=== PATIENT | male | born 1970 | race Caucasian/White ===

== ENCOUNTER 2017-10-23 14:29 | Inpatient (IN) | payer OTHER ==
[2017-10-23 14:50] VITALS: BMI 30.2
--- NOTE | 2017-10-23 18:27 | HP ---
CIWA Score - CIWA Score Nausea/Vomitin-Int. Nausea w/Dry Heave Muscle Tremors: 3 Anxiety: 3 Agitation: 3 Paroxysmal Sweats: 4-Forehead w/Sweat Beads Orientation: 0-Oriented Tacttile Disturbances: 0-None Auditory Disturbances: 0-None Visual Disturbances: 0-None Headache: 3-Moderate CIWA-Ar Total Score: 20 Admission ROS BHS - HPI Chief Complaint: alcohol withdrawal symptoms Allergies/Adverse Reactions: Allergies Allergy/AdvReac Type Severity Reaction Status Date / Time No Known Allergies Allergy Verified 10/23/17 16:53 History of Present Illness: 47 yo male with hx alcohol dependence is here seeking detox. Last detox six months ago in [place]. Reports was at [facility] yesterday for alcohol intoxication. PMHX: DM II, GERD, depression, bipolar d/o. Denies suicidal / homicidal ideation. Reports withdrawal related seizures last episode three years ago. Longest period of sobriety three years. Exam Limitations: No Limitations - Ebola screening Have you been sick,other than usual withdrawal symptoms: No - Review of Systems Constitutional: Diaphoresis, Changes in sleep EENT: reports: No Symptoms Reported Respiratory: reports: No Symptoms reported Cardiac: reports: No Symptoms Reported GI: reports: Diarrhea, Nausea, Vomiting, Indigestion : reports: No Symptoms Reported Musculoskeletal: reports: No Symptoms Reported Integumentary: reports: Other (excoriation for forearms trying to remove tape from hospital) Neuro: reports: See HPI, Headache, Tremors, Dizziness Endocrine: reports: Increased Thirst Hematology: reports: No Symptoms Reported Psychiatric: reports: Orientated x3, Anxious Other Systems: Reviewed and Negative Patient History - Patient Medical History Hx Anemia: No Hx Asthma: No Hx Chronic Obstructive Pulmonary Disease (COPD): No Hx Cancer: No Hx Cardiac Disorders: No Hx Congestive Heart Failure: No Hx Hypertension: No Hx Hypercholesterolemia: No Hx Pacemaker: No HX Cerebrovascular Accident: No Hx Seizures: Yes (2015) Hx Dementia: No Hx Diabetes: Yes (DM TYPE2) Hx Gastrointestinal Disorders: Yes (GERD ) Hx Liver Disease: No Hx Genitourinary Disorders: No Hx Sexually Transmitted Disorders: No Hx Renal Disease (ESRD): No Hx Thyroid Disease: No Hx Human Immunodeficiency Virus (HIV): No (last tested six months ago ) Hx Hepatitis C: No Hx Depression: No Hx Suicide Attempt: No Hx Bipolar Disorder: Yes Hx Schizophrenia: No - Patient Surgical History Past Surgical History: No - PPD History Previous Implant?: No Documented Results: Negative w/o proof Implanted On Prior [facility] Admission?: No PPD to be Administered?: Yes - Smoking Cessation Smoking history: Never smoked Hx Chewing Tobacco Use: No Initiated information on smoking cessation: No - Substance & Tx. History Hx Alcohol Use: Yes Hx Substance Use: Yes Substance Use Type: Alcohol - Substances Abused Alcohol Route: Oral Frequency: Daily Amount used: 2L VODKA Age of first use: 16 Date of Last Use: 10/23/17 Family Disease History - Family Disease History Family Disease History: Diabetes: Mother (, manic depressive d/o), CA: Mother Admission Physical Exam S - Vital Signs Vital Signs: Vital Signs - 24 hr 10/23/17 14:46 Temperature 98.5 F Pulse Rate 92 H Respiratory 18 Rate Blood Pressure 129/78 - Physical General Appearance: Yes: Disheveled, Moderate Distress, Obese, Tremorous, Sweating, Anxious HEENTM: Yes: EOMI, Hearing grossly Normal, Normal ENT Inspection, Normocephalic , Normal Voice, YOJANA, Pharynx Normal, Tm's normal Respiratory: Yes: Chest Non-Tender, Lungs Clear, Normal Breath Sounds, No Respiratory Distress, No Accessory Muscle Use Neck: Yes: No masses,lesions,Nodules, Trachea in good position Breast: Yes: Breast Exam Deferred Cardiology: Yes: Regular Rhythm, Regular Rate Abdominal: Yes: Normal Bowel Sounds, Non Tender, Soft, Protuberent Genitourinary: Yes: Within Normal Limits Back: Yes: Normal Inspection Musculoskeletal: Yes: full range of Motion, Gait Steady, Pelvis Stable Extremities: Yes: Normal Capillary Refill, Normal Inspection, Normal Range of Motion, Non-Tender Neurological: Yes: commander internal affairs II-XII NML intact, Fully Oriented, Alert, Motor Strength 5/5, Depressed Affect Integumentary: Yes: Normal Color, Warm, Diaphoresis, Other (excoriation for forearms) Lymphatic: Yes: Within Normal Limits - Diagnostic (1) Alcohol dependence with withdrawal Current Visit: Yes Status: Acute Qualifiers: Complication of substance-induced condition: uncomplicated Qualified Code(s ): F10.230 - Alcohol dependence with withdrawal, uncomplicated (2) Diabetes mellitus type 2 in obese Current Visit: Yes Status: Chronic (3) GERD (gastroesophageal reflux disease) Current Visit: Yes Status: Chronic Qualifiers: Esophagitis presence: without esophagitis Qualified Code(s): K21.9 - Gastro -esophageal reflux disease without esophagitis Cleared for Admission [facility] - Detox or Rehab [facility] Level of Care: Medically Managed Detox Regimen/Protocol: Librium [facility] Breath Alcohol Content Breath Alcohol Content: 0.085 Urine Drug Screen - Results Drug Screen Negative: No Urine Drug Screen Results: BZO-Benzodiazepines
[2017-10-23] MEDS ORDERED: IBUPROFEN 400 MG TABLET (FP) PO PRN (18:30)
[2017-10-23] MEDS ORDERED: LOPERAMIDE HCL 2 MG CAPSULE PO PRN (18:30)
[2017-10-23] MEDS ORDERED: ACETAMINOPHEN 325 MG TABLET (FP) PO PRN (18:30)
[2017-10-23] MEDS ORDERED: MENTHOL/PHENOL 1 EACH UD MM PRN (18:30)
[2017-10-23] MEDS ORDERED: MAGNESIUM HYDROX 2400MG/30ML ORAL SUSPENSION 30 ML CUP PO PRN (18:30)
[2017-10-23] MEDS ORDERED: guaiFENesin/D-METHORPHAN HB 10 ML UNIT-DOSE CUPS PO PRN (18:30)
[2017-10-23] MEDS ORDERED: P-EPHED 60MG/TRIPROLIDI 2.5MG TABLET PO PRN (18:30)
[2017-10-23] MEDS ORDERED: MAG HYDROX/AL HYDROX/SIMETH 30 ML UNIT-DOSE CUP PO PRN (18:30)
[2017-10-23] MEDS ORDERED: MAGNESIUM CITRATE 300 ML BOTTLE PO PRN (18:30)
[2017-10-23] MEDS: BACITRACIN 0.9 GM PACKET TP SCH (19:27)
[2017-10-23] MEDS: chlordiazePOXIDE HCL 25 MG CAPSULE PO PRN (19:28)
[2017-10-23] MEDS ORDERED: MELATONIN 5 MG TABLETS PO PRN (22:00)
[2017-10-23] MEDS: THIAMINE HCL 100 MG TABLET (FP) PO SCH (22:07)
[2017-10-23] MEDS: chlordiazePOXIDE HCL 25 MG CAPSULE PO SCH (22:07)
[2017-10-23 23:18] LABS: URINE APPEARANCE CLEAR; URINE BILIRUBIN NEGATIVE (<2.0 mg/dL); URINE COLOR LTYELLOW; URINE GLUCOSE (UA) 1+ (NEGATIVE); URINE KETONE NEGATIVE (NEGATIVE); URINE LEUK ESTERASE NEGATIVE (NEGATIVE); URINE NITRITE NEGATIVE (NEGATIVE); URINE PROTEIN NEGATIVE (NEGATIVE); URINE UROBILINOGEN NEGATIVE mg/dL (0.2-1.0)
[2017-10-24] MEDS: chlordiazePOXIDE HCL 25 MG CAPSULE PO PRN (03:05)
[2017-10-24] MEDS: chlordiazePOXIDE HCL 25 MG CAPSULE PO SCH (05:24)
[2017-10-24] MEDS: metFORMIN HCL 500 MG TABLET (FP) PO SCH ×2 (07:46→17:20)
[2017-10-24] MEDS: ONDANSETRON *ODT* 4 MG TABLET SL PRN (09:46)
[2017-10-24 10:27] LABS: HEMATOCRIT 42.1 % (35.4-49); HEMOGLOBIN 14.4 GM/dL (11.7-16.9); MCH 30.2 pg (25.7-33.7); MCHC 34.1 g/dl (32.0-35.9); MEAN CELL VOLUME 88.4 fl (80-96); MEAN PLT VOLUME 8.7 fl (7.5-11.1); PLATELET COUNT 168 K/MM3 (134-434); RBC 4.76 M/mm3 (4.00-5.60); RDW 14.7 % (11.9-15.9); WHITE BLOOD COUNT 5.4 K/mm3 (4.0-10.0)
[2017-10-24 10:32] LABS: CHLORIDE 103 mmol/L (98-107); POTASSIUM 4.1 mmol/L (3.5-5.1); SODIUM 139 mmol/L (136-145)
[2017-10-24] MEDS: PRENATAL VITAMINS W/ FOLIC ACID TABLET (FP) PO SCH (10:34)
[2017-10-24] MEDS: diazePAM 5 MG TABLET PO PRN ×2 (10:34→17:24)
[2017-10-24] MEDS: PANTOPRAZOLE 20 MG TABLET (FP) PO SCH (10:34)
[2017-10-24] MEDS: BACITRACIN 0.9 GM PACKET TP SCH (10:34)
[2017-10-24 10:37] LABS: ALBUMIN 3.7 g/dl (3.4-5.0); ALK PHOS 108 U/L (45-117); ANION GAP 11 MMOL/L (8-16); BILIRUBIN,TOTAL 0.9 mg/dL (0.2-1.0); BLOOD UREA NITROGEN 13 mg/dL (7-18); CALCIUM 8.9 mg/dL (8.5-10.1); CO2 25 mmol/L (21-32); CREATININE 0.8 mg/dL (0.7-1.3); GLUCOSE,RANDOM 182 mg/dL (74-106); SGOT/AST 27 U/L (15-37); SGPT/ALT 58 U/L (12-78); TOT PROT 6.7 g/dl (6.4-8.2)
--- NOTE | 2017-10-24 12:57 | PN ---
S CIWA - CIWA Score Nausea/Vomitin-Int. Nausea w/Dry Heave Muscle Tremors: 4-Moderate,w/Arms Extend Anxiety: 4-Mod. Anxious/Guarded Agitation: 4-Moderately Restless Paroxysmal Sweats: 1-Minimal Palms Moist Orientation: 0-Oriented Tacttile Disturbances: 0-None Auditory Disturbances: 0-None Visual Disturbances: 0-None Headache: 0-None Present CIWA-Ar Total Score: 17 BHS Progress Note (SOAP) Subjective: ANXIETY,NAUSEA,TREMORS. PT REQUESTS TO CHANGE LIBRIUM DUE TO STOMACH UPSET. Objective: 10/24/17 12:56 Vital Signs 10/24/17 10/24/17 06:18 11:18 Temperature 97.3 F L 98.2 F Pulse Rate 69 71 Respiratory 18 18 Rate Blood Pressure 113/71 107/68 Laboratory Tests 10/23/17 10/23/17 10/24/17 19:27 21:41 05:24 WBC RBC Hgb Hct MCV MCH MCHC RDW Plt Count MPV Sodium Potassium Chloride Carbon Dioxide Anion Gap BUN Creatinine Creat Clearance w eGFR POC Glucometer 202 165 Random Glucose Calcium Total Bilirubin AST ALT Alkaline Phosphatase Total Protein Albumin Urine Color Ltyellow Urine Appearance Clear Urine pH 5.0 Ur Specific [place] 1.010 Urine Protein Negative Urine Glucose (UA) 1+ H Urine Ketones Negative Urine Blood Negative Urine Nitrite Negative Urine Bilirubin Negative Urine Urobilinogen Negative Ur Leukocyte Esterase Negative RPR Titer 10/24/17 10/24/17 10/24/17 07:00 07:00 07:00 WBC 5.4 RBC 4.76 Hgb 14.4 Hct 42.1 MCV 88.4 MCH 30.2 MCHC 34.1 RDW 14.7 Plt Count 168 MPV 8.7 Sodium 139 Potassium 4.1 Chloride 103 Carbon Dioxide 25 Anion Gap 11 BUN 13 Creatinine 0.8 Creat Clearance w eGFR > 60 POC Glucometer Random Glucose 182 H Calcium 8.9 Total Bilirubin 0.9 AST 27 ALT 58 Alkaline Phosphatase 108 Total Protein 6.7 Albumin 3.7 Urine Color Urine Appearance Urine pH Ur Specific [place] Urine Protein Urine Glucose (UA) Urine Ketones Urine Blood Urine Nitrite Urine Bilirubin Urine Urobilinogen Ur Leukocyte Esterase RPR Titer Nonreactive Assessment: 10/24/17 12:56 WITHDRAWAL SX Plan: CONTINUE DETOX ZOFRAN SL PRN D/C LIBRIUM PROTOCOL START VALIUM TAPER.
--- NOTE | 2017-10-24 13:51 | CONSULT ---
[facility] Psychiatric Consult - Data Date of interview: 10/24/17 Admission source: [facility] Identifying data: Patient is a 47 year old male, without kids, homeless, and unemployed. This is patient's first admission to detox at [facility]. Pt. admitted to for alcohol dependence. Substance Abuse History: - Smoking Cessation. Smoking history: Never smoked. Hx Chewing Tobacco Use: No. Initiated information on smoking cessation: No. - Substance & Tx. History. Hx Alcohol Use: Yes. Hx Substance Use: Yes. Substance Use Type: Alcohol. - Substances Abused. Alcohol. Route: Oral. Frequency: Daily. Amount used: 2L VODKA. Age of first use: 16. Date of Last Use: 10/23/17 Medical History: seizures, diabetes, GERD Psychiatric History: Patient denies h/o psychiatric hospitalizations. Pt. presents with anxiety, racing thoughts, and poor sleep. Patient's first psychiatric contact was in 1996 after admitted self to detox which resulted in a diagnosis of bipolar II disorder. Pt. Throughout the years patient reports seeing various psychiatrist while a patient in detox/rehab facilities. Most recent OPD was provided in [place] three months ago. Patient's current medication are buspar 10mg BID + lamictal 100mg + trazodone 100mg. Pt reports medication compliance. Pt. denies h/o suicide attempt. Physical/Sexual Abuse/Trauma History: denies. Mental Status Exam - Mental Status Exam Alert and Oriented to: Time, Place, Person Cognitive Function: Good Patient Appearance: Well Groomed Mood: Anxious, Hopeful, Euthymic Affect: Appropriate, Mood Congruent Patient Behavior: Talkative, Cooperative Speech Pattern: Pressured Voice Loudness: Normal Thought Process: Intact, Goal Oriented Thought Disorder: Not Present Hallucinations: Denies Suicidal Ideation: Denies Homicidal Ideation: Denies Insight/Judgement: Poor Sleep: Poorly Appetite: Fair Muscle strength/Tone: Normal Gait/Station: Normal Psychiatric Findings - Problem List ([place] 1, 2,3) (1) Bipolar disorder Current Visit: Yes Status: Chronic (2) Alcohol dependence with withdrawal Current Visit: Yes Status: Acute Qualifiers: Complication of substance-induced condition: uncomplicated Qualified Code(s ): F10.230 - Alcohol dependence with withdrawal, uncomplicated (3) Anxiety Current Visit: Yes Status: Acute (4) Insomnia Current Visit: Yes Status: Acute - Initial Treatment Plan Initial Treatment Plan: Psychoeducation provided. Detoxification in progress. Will order Lamictal 100mg BID + buspar 10mg BID + trazodone 50mg + Seroquel 50mg qhs +Vistaril 50mg q6h. Seroquel added to assist in improving poor sleep and racing thoughts. Benefits and side effects discussed. Verbal consent given.
[2017-10-24] MEDS ORDERED: busPIRone HCL 10 MG TABLET (FP) PO ONE (14:04)
[2017-10-24] MEDS ORDERED: hydrOXYzine PAMOATE 50 MG CAPSULE (FP) PO PRN (14:05)
[2017-10-24] MEDS: diazePAM 5 MG TABLET PO SCH ×2 (14:09→22:05)
[2017-10-24] MEDS: lamoTRIgine 100 MG TABLET (FP) PO SCH ×2 (15:10→22:05)
--- NOTE | 2017-10-24 16:06 | EKG ---
Test Reason : Blood Pressure : / mmHG Vent. Rate : 087 BPM Atrial Rate : 087 BPM P-R Int : 126 ms QRS Dur : 088 ms QT Int : 370 ms P-R-T Axes : 043 -03 010 degrees QTc Int : 445 ms POOR DATA QUALITY, INTERPRETATION MAY BE ADVERSELY AFFECTED NORMAL SINUS RHYTHM NORMAL ECG NO PREVIOUS ECGS AVAILABLE Confirmed by Ros Lima ([id number]) on 10/24/2017 4:05:57 PM Referred By: Confirmed By:Ros Lima
[2017-10-24] MEDS ORDERED: traZODone HCL 100 MG TABLET (FP) PO SCH (22:00)
[2017-10-24] MEDS: busPIRone HCL 10 MG TABLET (FP) PO SCH (22:05)
[2017-10-24] MEDS: traZODone HCL 100 MG TABLET (FP) PO SCH (22:05)
[2017-10-24] MEDS: THIAMINE HCL 100 MG TABLET (FP) PO SCH (22:05)
[2017-10-24] MEDS ORDERED: chlordiazePOXIDE HCL 25 MG CAPSULE PO SCH (23:00)
[2017-10-25] MEDS: diazePAM 5 MG TABLET PO PRN ×3 (02:47→17:18)
[2017-10-25] MEDS: metFORMIN HCL 500 MG TABLET (FP) PO SCH ×2 (06:07→17:16)
[2017-10-25] MEDS: ONDANSETRON *ODT* 4 MG TABLET SL PRN (07:02)
[2017-10-25] MEDS: PANTOPRAZOLE 20 MG TABLET (FP) PO SCH (10:32)
[2017-10-25] MEDS: PRENATAL VITAMINS W/ FOLIC ACID TABLET (FP) PO SCH (10:32)
[2017-10-25] MEDS: BACITRACIN 0.9 GM PACKET TP SCH (10:32)
[2017-10-25] MEDS: busPIRone HCL 10 MG TABLET (FP) PO SCH ×2 (10:32→22:06)
[2017-10-25] MEDS: diazePAM 5 MG TABLET PO SCH ×2 (10:32→22:05)
[2017-10-25] MEDS: lamoTRIgine 100 MG TABLET (FP) PO SCH ×2 (10:34→22:05)
--- NOTE | 2017-10-25 12:09 | PN ---
[facility] CIWA - CIWA Score Nausea/Vomitin-No Nausea/No Vomiting Muscle Tremors: 4-Moderate,w/Arms Extend Anxiety: 4-Mod. Anxious/Guarded Agitation: 4-Moderately Restless Paroxysmal Sweats: 1-Minimal Palms Moist Orientation: 0-Oriented Tacttile Disturbances: 0-None Auditory Disturbances: 0-None Visual Disturbances: 0-None Headache: 0-None Present CIWA-Ar Total Score: 13 S Progress Note (SOAP) Subjective: ANXIETY,SWEATS,DECREASED TREMORS. REPORTS FEELING DECREASED W/Sx WITH CURRENT DETOX TAPER. Objective: 10/25/17 12:08 Vital Signs 10/25/17 10/25/17 06:21 09:15 Temperature 97.3 F L 99.1 F Pulse Rate 63 84 Respiratory 18 18 Rate Blood Pressure 109/70 121/92 Laboratory Tests 10/23/17 10/23/17 10/24/17 19:27 21:41 05:24 WBC RBC Hgb Hct MCV MCH MCHC RDW Plt Count MPV Sodium Potassium Chloride Carbon Dioxide Anion Gap BUN Creatinine Creat Clearance w eGFR POC Glucometer 202 165 Random Glucose Calcium Total Bilirubin AST ALT Alkaline Phosphatase Total Protein Albumin Urine Color Ltyellow Urine Appearance Clear Urine pH 5.0 Ur Specific [place] 1.010 Urine Protein Negative Urine Glucose (UA) 1+ H Urine Ketones Negative Urine Blood Negative Urine Nitrite Negative Urine Bilirubin Negative Urine Urobilinogen Negative Ur Leukocyte Esterase Negative RPR Titer 10/24/17 10/24/17 10/24/17 07:00 07:00 07:00 WBC 5.4 RBC 4.76 Hgb 14.4 Hct 42.1 MCV 88.4 MCH 30.2 MCHC 34.1 RDW 14.7 Plt Count 168 MPV 8.7 Sodium 139 Potassium 4.1 Chloride 103 Carbon Dioxide 25 Anion Gap 11 BUN 13 Creatinine 0.8 Creat Clearance w eGFR > 60 POC Glucometer Random Glucose 182 H Calcium 8.9 Total Bilirubin 0.9 AST 27 ALT 58 Alkaline Phosphatase 108 Total Protein 6.7 Albumin 3.7 Urine Color Urine Appearance Urine pH Ur Specific [place] Urine Protein Urine Glucose (UA) Urine Ketones Urine Blood Urine Nitrite Urine Bilirubin Urine Urobilinogen Ur Leukocyte Esterase RPR Titer Nonreactive 10/24/17 10/25/17 16:19 05:41 WBC RBC Hgb Hct MCV MCH MCHC RDW Plt Count MPV Sodium Potassium Chloride Carbon Dioxide Anion Gap BUN Creatinine Creat Clearance w eGFR POC Glucometer 196 220 Random Glucose Calcium Total Bilirubin AST ALT Alkaline Phosphatase Total Protein Albumin Urine Color Urine Appearance Urine pH Ur Specific [place] Urine Protein Urine Glucose (UA) Urine Ketones Urine Blood Urine Nitrite Urine Bilirubin Urine Urobilinogen Ur Leukocyte Esterase RPR Titer Assessment: 10/25/17 12:09 WITHDRAWAL SX Plan: CONTINUE DETOX
[2017-10-25] MEDS: QUEtiapine FUMARATE 50 MG TABLET PO SCH (22:05)
[2017-10-25] MEDS: traZODone HCL 100 MG TABLET (FP) PO SCH (22:06)
[2017-10-25] MEDS: THIAMINE HCL 100 MG TABLET (FP) PO SCH (22:06)
[2017-10-25] MEDS ORDERED: chlordiazePOXIDE 5 MG CAPSULE PO SCH (23:00)
[2017-10-26] MEDS: metFORMIN HCL 500 MG TABLET (FP) PO SCH ×2 (08:19→17:22)
[2017-10-26] MEDS: diazePAM 5 MG TABLET PO PRN ×2 (08:55→17:24)
[2017-10-26] MEDS: BACITRACIN 0.9 GM PACKET TP SCH (10:23)
[2017-10-26] MEDS: PANTOPRAZOLE 20 MG TABLET (FP) PO SCH (10:23)
[2017-10-26] MEDS: busPIRone HCL 10 MG TABLET (FP) PO SCH ×2 (10:23→22:28)
[2017-10-26] MEDS: PRENATAL VITAMINS W/ FOLIC ACID TABLET (FP) PO SCH (10:23)
[2017-10-26] MEDS: lamoTRIgine 100 MG TABLET (FP) PO SCH ×2 (10:24→22:28)
[2017-10-26] MEDS: diazePAM 5 MG TABLET PO SCH ×2 (10:24→22:28)
--- NOTE | 2017-10-26 16:24 | PN ---
S Progress Note (SOAP) Subjective: Fatigue, Anxious, Stomach Cramping. Objective: PATIENT A & O X 3, OBSERVED AMBULATING ON UNIT. NO ACUTE DISTRESS. 10/26/17 16:23 Vital Signs Temperature 97.3 F L 10/26/17 14:21 Pulse Rate 83 10/26/17 14:21 Respiratory Rate 18 10/26/17 14:21 Blood Pressure 112/76 10/26/17 14:21 O2 Sat by Pulse Oximetry (%) Laboratory Tests 10/23/17 10/23/17 10/24/17 19:27 21:41 05:24 WBC RBC Hgb Hct MCV MCH MCHC RDW Plt Count MPV Sodium Potassium Chloride Carbon Dioxide Anion Gap BUN Creatinine Creat Clearance w eGFR POC Glucometer 202 165 Random Glucose Calcium Total Bilirubin AST ALT Alkaline Phosphatase Total Protein Albumin Urine Color Ltyellow Urine Appearance Clear Urine pH 5.0 Ur Specific [place] 1.010 Urine Protein Negative Urine Glucose (UA) 1+ H Urine Ketones Negative Urine Blood Negative Urine Nitrite Negative Urine Bilirubin Negative Urine Urobilinogen Negative Ur Leukocyte Esterase Negative RPR Titer 10/24/17 10/24/17 10/24/17 07:00 07:00 07:00 WBC 5.4 RBC 4.76 Hgb 14.4 Hct 42.1 MCV 88.4 MCH 30.2 MCHC 34.1 RDW 14.7 Plt Count 168 MPV 8.7 Sodium 139 Potassium 4.1 Chloride 103 Carbon Dioxide 25 Anion Gap 11 BUN 13 Creatinine 0.8 Creat Clearance w eGFR > 60 POC Glucometer Random Glucose 182 H Calcium 8.9 Total Bilirubin 0.9 AST 27 ALT 58 Alkaline Phosphatase 108 Total Protein 6.7 Albumin 3.7 Urine Color Urine Appearance Urine pH Ur Specific [place] Urine Protein Urine Glucose (UA) Urine Ketones Urine Blood Urine Nitrite Urine Bilirubin Urine Urobilinogen Ur Leukocyte Esterase RPR Titer Nonreactive 10/24/17 10/25/17 10/25/17 16:19 05:41 16:10 WBC RBC Hgb Hct MCV MCH MCHC RDW Plt Count MPV Sodium Potassium Chloride Carbon Dioxide Anion Gap BUN Creatinine Creat Clearance w eGFR POC Glucometer 196 220 375 Random Glucose Calcium Total Bilirubin AST ALT Alkaline Phosphatase Total Protein Albumin Urine Color Urine Appearance Urine pH Ur Specific [place] Urine Protein Urine Glucose (UA) Urine Ketones Urine Blood Urine Nitrite Urine Bilirubin Urine Urobilinogen Ur Leukocyte Esterase RPR Titer 10/26/17 05:55 WBC RBC Hgb Hct MCV MCH MCHC RDW Plt Count MPV Sodium Potassium Chloride Carbon Dioxide Anion Gap BUN Creatinine Creat Clearance w eGFR POC Glucometer 286 Random Glucose Calcium Total Bilirubin AST ALT Alkaline Phosphatase Total Protein Albumin Urine Color Urine Appearance Urine pH Ur Specific [place] Urine Protein Urine Glucose (UA) Urine Ketones Urine Blood Urine Nitrite Urine Bilirubin Urine Urobilinogen Ur Leukocyte Esterase RPR Titer LABS NOTED. Assessment: 10/26/17 16:23 WITHDRAWAL SYMPTOMS. Plan: CONTINUE DETOX.
[2017-10-26] MEDS: QUEtiapine FUMARATE 50 MG TABLET PO SCH (22:28)
[2017-10-26] MEDS: THIAMINE HCL 100 MG TABLET (FP) PO SCH (22:28)
[2017-10-26] MEDS: traZODone HCL 100 MG TABLET (FP) PO SCH (22:29)
[2017-10-26] MEDS ORDERED: chlordiazePOXIDE HCL 10 MG CAPSULE PO SCH (23:00)
[2017-10-27] MEDS: metFORMIN HCL 500 MG TABLET (FP) PO SCH (07:38)
[2017-10-27 09:38] VITALS: BP 105/71; PULSE 78; TEMP 97.6
[2017-10-27] MEDS ORDERED: diazePAM 5 MG TABLET PO SCH (10:00)
[2017-10-27] MEDS: lamoTRIgine 100 MG TABLET (FP) PO SCH (10:18)
[2017-10-27] MEDS: BACITRACIN 0.9 GM PACKET TP SCH (10:18)
[2017-10-27] MEDS: PRENATAL VITAMINS W/ FOLIC ACID TABLET (FP) PO SCH (10:18)
[2017-10-27] MEDS: PANTOPRAZOLE 20 MG TABLET (FP) PO SCH (10:18)
[2017-10-27] MEDS: busPIRone HCL 10 MG TABLET (FP) PO SCH (10:18)
[2017-10-27] MEDS ORDERED: P-EPHED 60MG/TRIPROLIDI 2.5MG TABLET PO PRN (11:45)
[2017-10-27] MEDS ORDERED: MAGNESIUM CITRATE 300 ML BOTTLE PO PRN (11:45)
[2017-10-27] MEDS ORDERED: IBUPROFEN 400 MG TABLET (FP) PO PRN (11:45)
[2017-10-27] MEDS ORDERED: MAG HYDROX/AL HYDROX/SIMETH 30 ML UNIT-DOSE CUP PO PRN (11:45)
[2017-10-27] MEDS ORDERED: MENTHOL/PHENOL 1 EACH UD MM PRN (11:45)
[2017-10-27] MEDS ORDERED: ACETAMINOPHEN 325 MG TABLET (FP) PO PRN (11:45)
[2017-10-27] MEDS ORDERED: LOPERAMIDE HCL 2 MG CAPSULE PO PRN (11:45)
[2017-10-27] MEDS ORDERED: MAGNESIUM HYDROX 2400MG/30ML ORAL SUSPENSION 30 ML CUP PO PRN (11:45)
[2017-10-27] MEDS ORDERED: guaiFENesin/D-METHORPHAN HB 10 ML UNIT-DOSE CUPS PO PRN (11:45)
--- NOTE | 2017-10-27 11:56 | DS ---
[facility] Detox Discharge Summary Admission Date: 10/23/17 Discharge Date: 10/27/17 - History Present History: Alcohol Dependence Pertinent Past History: DMT2 GERD - Physical Exam Results Vital Signs: Vital Signs Temperature 97.6 F 10/27/17 09:37 Pulse Rate 78 10/27/17 09:37 Respiratory Rate 18 10/27/17 09:37 Blood Pressure 105/71 10/27/17 09:37 O2 Sat by Pulse Oximetry (%) Pertinent Admission Physical Exam Findings: Withdrawal symptoms Laboratory Tests 10/23/17 10/23/17 10/24/17 19:27 21:41 05:24 WBC RBC Hgb Hct MCV MCH MCHC RDW Plt Count MPV Sodium Potassium Chloride Carbon Dioxide Anion Gap BUN Creatinine Creat Clearance w eGFR POC Glucometer 202 165 Random Glucose Calcium Total Bilirubin AST ALT Alkaline Phosphatase Total Protein Albumin Urine Color Ltyellow Urine Appearance Clear Urine pH 5.0 Ur Specific [place] 1.010 Urine Protein Negative Urine Glucose (UA) 1+ H Urine Ketones Negative Urine Blood Negative Urine Nitrite Negative Urine Bilirubin Negative Urine Urobilinogen Negative Ur Leukocyte Esterase Negative RPR Titer 10/24/17 10/24/17 10/24/17 07:00 07:00 07:00 WBC 5.4 RBC 4.76 Hgb 14.4 Hct 42.1 MCV 88.4 MCH 30.2 MCHC 34.1 RDW 14.7 Plt Count 168 MPV 8.7 Sodium 139 Potassium 4.1 Chloride 103 Carbon Dioxide 25 Anion Gap 11 BUN 13 Creatinine 0.8 Creat Clearance w eGFR > 60 POC Glucometer Random Glucose 182 H Calcium 8.9 Total Bilirubin 0.9 AST 27 ALT 58 Alkaline Phosphatase 108 Total Protein 6.7 Albumin 3.7 Urine Color Urine Appearance Urine pH Ur Specific [place] Urine Protein Urine Glucose (UA) Urine Ketones Urine Blood Urine Nitrite Urine Bilirubin Urine Urobilinogen Ur Leukocyte Esterase RPR Titer Nonreactive 10/24/17 10/25/17 10/25/17 16:19 05:41 16:10 WBC RBC Hgb Hct MCV MCH MCHC RDW Plt Count MPV Sodium Potassium Chloride Carbon Dioxide Anion Gap BUN Creatinine Creat Clearance w eGFR POC Glucometer 196 220 375 Random Glucose Calcium Total Bilirubin AST ALT Alkaline Phosphatase Total Protein Albumin Urine Color Urine Appearance Urine pH Ur Specific [place] Urine Protein Urine Glucose (UA) Urine Ketones Urine Blood Urine Nitrite Urine Bilirubin Urine Urobilinogen Ur Leukocyte Esterase RPR Titer 10/26/17 10/27/17 05:55 05:55 WBC RBC Hgb Hct MCV MCH MCHC RDW Plt Count MPV Sodium Potassium Chloride Carbon Dioxide Anion Gap BUN Creatinine Creat Clearance w eGFR POC Glucometer 286 191 Random Glucose Calcium Total Bilirubin AST ALT Alkaline Phosphatase Total Protein Albumin Urine Color Urine Appearance Urine pH Ur Specific [place] Urine Protein Urine Glucose (UA) Urine Ketones Urine Blood Urine Nitrite Urine Bilirubin Urine Urobilinogen Ur Leukocyte Esterase RPR Titer Labs reviewed - Treatment Hospital Course: Detox Protocol Followed, Detoxed Safely, Responded well, Discharged Condition Good, Rehab Referral Accepted - Medication Discharge Medications: Ambulatory Orders Buspirone HCl [Buspar -] 10 mg PO BID 10/23/17 Lamotrigine [Lamictal -] 100 mg PO BID 10/23/17 Metformin HCl [Glucophage] 500 mg PO BID 10/23/17 traZODone HCL [Trazodone HCl] 100 mg PO HS 10/23/17 Quetiapine Fumarate [Seroquel -] 50 mg PO HS 10/27/17 - Diagnosis (1) Alcohol dependence with withdrawal Status: Acute Qualifiers: Complication of substance-induced condition: uncomplicated Qualified Code(s ): F10.230 - Alcohol dependence with withdrawal, uncomplicated (2) Bipolar disorder Status: Chronic (3) Diabetes mellitus type 2 in obese Status: Chronic (4) GERD (gastroesophageal reflux disease) Status: Chronic Qualifiers: Esophagitis presence: without esophagitis Qualified Code(s): K21.9 - Gastro -esophageal reflux disease without esophagitis - AMA Did Patient Leave Against Medical Advice: No (F/U with your PCP within 1-2 weeks after rehab)
[2017-10-27] MEDS ORDERED: INSULIN SLIDING SCALE (NOVOLOG) 1 VIAL SQ SCH (16:30)
[2017-10-27] MEDS ORDERED: metFORMIN HCL 500 MG TABLET (FP) PO SCH (16:30)
[2017-10-27] MEDS ORDERED: THIAMINE HCL 100 MG TABLET (FP) PO SCH (22:00)
[2017-10-27] MEDS ORDERED: MELATONIN 5 MG TABLETS PO PRN (22:00)
[2017-10-28] MEDS ORDERED: PRENATAL VITAMINS W/ FOLIC ACID TABLET (FP) PO SCH (10:00)
[2017-10-28] MEDS ORDERED: PANTOPRAZOLE 20 MG TABLET (FP) PO SCH (10:00)
== END 2017-10-27 11:01 | disposition other institution (70) | DRG 775 ==
LOC: YASAS 14:29 → Y3N 16:55
PROVIDERS: ADMIT Surgery; ATTEND Surgery
PROC: HZ2ZZZZ Detoxification Services for Substance Abuse Treatment (ICD-10-PCS; principal; 2017-10-23)
DX: F10.230 Alcohol dependence with withdrawal, uncomplicated (principal); F31.9 Bipolar disorder, unspecified; F41.9 Anxiety disorder, unspecified; G47.00 Insomnia, unspecified; K21.9 Gastro-esophageal reflux disease without esophagitis; E11.9 Type 2 diabetes mellitus without complications; Z79.84 Long term (current) use of oral hypoglycemic drugs; Z86.69 Personal history of other diseases of the nervous system and sense organs
CPT/HCPCS: 36415; 80053; 81003; 82962; 85027; 86593; 93005; 93010; Q0162

== ENCOUNTER 2021-01-27 15:29 | Inpatient (IN) | payer OTHER ==
[2021-01-27 18:18] VITALS: BMI 29.2
[2021-01-27] MEDS ORDERED: MAGNESIUM HYDROX 2400MG/30ML ORAL SUSPENSION 30 ML CUP PO PRN (19:01)
[2021-01-27] MEDS ORDERED: LORazepam 2 MG TABLET PO ONE (19:01)
[2021-01-27] MEDS ORDERED: MELATONIN 5 MG TABLETS PO PRN (19:01)
[2021-01-27] MEDS ORDERED: ONDANSETRON *ODT* 4 MG TABLET SL PRN (19:01)
[2021-01-27] MEDS ORDERED: ACETAMINOPHEN 325 MG TABLET (FP) PO PRN (19:01)
[2021-01-27] MEDS ORDERED: MENTHOL/PHENOL 1 EACH UD MM PRN (19:01)
[2021-01-27] MEDS ORDERED: IBUPROFEN 400 MG TABLET (FP) PO PRN (19:01)
[2021-01-27] MEDS ORDERED: MAG HYDROX/AL HYDROX/SIMETH 30 ML UNIT-DOSE CUP PO PRN (19:01)
[2021-01-27] MEDS ORDERED: LORazepam 1 MG TABLET PO PRN (19:01)
[2021-01-27] MEDS ORDERED: BISMUTH SUBSALICYLATE 524 MG/30 ML PO PRN (19:01)
[2021-01-27] MEDS ORDERED: MAGNESIUM CITRATE 300 ML BOTTLE PO PRN (19:01)
[2021-01-27] MEDS: INSULIN SLIDING SCALE (NOVOLOG) 1 VIAL SQ SCH (22:37)
[2021-01-27] MEDS: ACETAMINOPHEN 325 MG TABLET (FP) PO PRN (22:40)
[2021-01-27] MEDS: LORazepam 2 MG TABLET PO SCH (22:40)
[2021-01-27] MEDS: THIAMINE HCL 100 MG TABLET (FP) PO SCH (22:50)
[2021-01-27] MEDS ORDERED: QUEtiapine FUMARATE 50 MG TABLET PO ONE (23:00)
[2021-01-27] MEDS ORDERED: traZODone HCL 50 MG TABLET (FP) PO ONE (23:00)
[2021-01-28] MEDS: METHOCARBAMOL 500 MG TABLET PO PRN (00:20)
[2021-01-28] MEDS: GABAPENTIN 300 MG CAPSULE PO SCH ×2 (06:55→14:24)
[2021-01-28] MEDS: LORazepam 2 MG TABLET PO SCH ×4 (06:55→22:38)
[2021-01-28] MEDS: metFORMIN HCL 500 MG TABLET (FP) PO SCH ×2 (06:55→16:53)
[2021-01-28] MEDS: INSULIN SLIDING SCALE (NOVOLOG) 1 VIAL SQ SCH ×4 (07:00→22:42)
[2021-01-28] MEDS: PRENATAL VITAMINS W/ FOLIC ACID TABLET (FP) PO SCH (10:31)
[2021-01-28] MEDS: PANTOPRAZOLE 20 MG TABLET PO SCH (10:33)
[2021-01-28] MEDS: GABAPENTIN 400 MG CAPSULE PO SCH (22:38)
[2021-01-28] MEDS: QUEtiapine FUMARATE 50 MG TABLET PO SCH (22:38)
[2021-01-28] MEDS: THIAMINE HCL 100 MG TABLET (FP) PO SCH (22:40)
[2021-01-29] MEDS: LORazepam 1 MG TABLET PO SCH ×4 (06:00→22:10)
[2021-01-29] MEDS: ACETAMINOPHEN 325 MG TABLET (FP) PO PRN ×2 (06:02→22:11)
[2021-01-29] MEDS: metFORMIN HCL 500 MG TABLET (FP) PO SCH ×2 (06:04→17:40)
[2021-01-29] MEDS: GABAPENTIN 400 MG CAPSULE PO SCH ×3 (06:05→22:10)
[2021-01-29] MEDS: INSULIN SLIDING SCALE (NOVOLOG) 1 VIAL SQ SCH ×4 (06:12→22:11)
[2021-01-29] MEDS: PANTOPRAZOLE 20 MG TABLET PO SCH (10:29)
[2021-01-29] MEDS: PRENATAL VITAMINS W/ FOLIC ACID TABLET (FP) PO SCH (10:29)
[2021-01-29 11:05] LABS: CALCIUM 9.2 mg/dL (8.5-10.1)
[2021-01-29 11:06] LABS: ALBUMIN 3.2 g/dl (3.4-5.0); BLOOD UREA NITROGEN 18.1 mg/dL (7-18)
[2021-01-29 11:09] LABS: CREATININE 0.8 mg/dL (0.55-1.3)
[2021-01-29 11:10] LABS: TOT PROT 6.4 g/dl (6.4-8.2)
[2021-01-29 11:11] LABS: BILIRUBIN,TOTAL 0.4 mg/dL (0.2-1)
[2021-01-29] MEDS: QUEtiapine FUMARATE 50 MG TABLET PO SCH (22:10)
[2021-01-29] MEDS: THIAMINE HCL 100 MG TABLET (FP) PO SCH (22:30)
[2021-01-30] MEDS ORDERED: LORazepam 0.5 MG TABLET PO PRN
[2021-01-30] MEDS: LORazepam 0.5 MG TABLET PO SCH ×4 (05:49→22:18)
[2021-01-30] MEDS: GABAPENTIN 400 MG CAPSULE PO SCH ×3 (05:50→22:18)
[2021-01-30] MEDS: metFORMIN HCL 500 MG TABLET (FP) PO SCH ×2 (06:09→17:28)
[2021-01-30] MEDS: INSULIN SLIDING SCALE (NOVOLOG) 1 VIAL SQ SCH ×4 (06:10→22:14)
[2021-01-30] MEDS: PRENATAL VITAMINS W/ FOLIC ACID TABLET (FP) PO SCH (10:31)
[2021-01-30] MEDS: PANTOPRAZOLE 20 MG TABLET PO SCH (10:31)
[2021-01-30] MEDS: ACETAMINOPHEN 325 MG TABLET (FP) PO PRN (10:32)
[2021-01-30] MEDS: METHOCARBAMOL 500 MG TABLET PO PRN (15:28)
[2021-01-30] MEDS ORDERED: INSULIN (LEVEMIR) 100 UNITS/ML UNITS SQ SCH (22:00)
[2021-01-30] MEDS: THIAMINE HCL 100 MG TABLET (FP) PO SCH (22:18)
[2021-01-30] MEDS: QUEtiapine FUMARATE 50 MG TABLET PO SCH (22:18)
[2021-01-31] MEDS: ACETAMINOPHEN 325 MG TABLET (FP) PO PRN (03:34)
[2021-01-31] MEDS ORDERED: LORazepam 0.5 MG TABLET PO ONE (05:00)
[2021-01-31] MEDS: GABAPENTIN 400 MG CAPSULE PO SCH (07:54)
[2021-01-31] MEDS: metFORMIN HCL 500 MG TABLET (FP) PO SCH (07:54)
[2021-01-31] MEDS: INSULIN SLIDING SCALE (NOVOLOG) 1 VIAL SQ SCH (07:54)
[2021-01-31 08:47] VITALS: BP 126/86; PULSE 77; TEMP 97.1
== END 2021-01-31 09:22 | disposition home or self-care (01) | DRG 775 ==
LOC: YASAS 15:29 → Y3N 20:59
PROVIDERS: ADMIT Allergy & Immunology; ATTEND Allergy & Immunology
PROC: HZ2ZZZZ Detoxification Services for Substance Abuse Treatment (ICD-10-PCS; principal; 2021-01-27)
DX: F10.230 Alcohol dependence with withdrawal, uncomplicated (principal); F19.24 Other psychoactive substance dependence with psychoactive substance-induced mood disorder; F41.1 Generalized anxiety disorder; F90.9 Attention-deficit hyperactivity disorder, unspecified type; K21.9 Gastro-esophageal reflux disease without esophagitis; E11.69 Type 2 diabetes mellitus with other specified complication; G47.00 Insomnia, unspecified; R00.0 Tachycardia, unspecified; R20.0 Anesthesia of skin; E66.9 Obesity, unspecified; Z68.29 Body mass index [BMI] 29.0-29.9, adult; Z79.84 Long term (current) use of oral hypoglycemic drugs; Z86.69 Personal history of other diseases of the nervous system and sense organs; Z48.00 Encounter for change or removal of nonsurgical wound dressing
CPT/HCPCS: 36415; 80053; 82962; 86780; C9803; U0003; U0005

== ENCOUNTER 2021-04-19 13:07 | Inpatient (IN) | payer OTHER ==
[2021-04-19] MEDS ORDERED: ACETAMINOPHEN 325 MG TABLET (FP) PO PRN ×2 (13:30)
[2021-04-19] MEDS ORDERED: MAGNESIUM HYDROX 2400MG/30ML ORAL SUSPENSION 30 ML CUP PO PRN (13:30)
[2021-04-19] MEDS ORDERED: MAGNESIUM CITRATE 300 ML BOTTLE PO PRN (13:30)
[2021-04-19] MEDS ORDERED: BISMUTH SUBSALICYLATE 262 MG/15 ML BTL PO PRN (13:30)
[2021-04-19] MEDS ORDERED: LOPERAMIDE HCL 2 MG CAPSULE PO PRN (13:30)
[2021-04-19] MEDS ORDERED: LORazepam 1 MG TABLET PO PRN (13:30)
[2021-04-19] MEDS ORDERED: IBUPROFEN 400 MG TABLET (FP) PO PRN (13:30)
[2021-04-19] MEDS ORDERED: MENTHOL/PHENOL 1 EACH UD MM PRN (13:30)
[2021-04-19] MEDS ORDERED: MAG HYDROX/AL HYDROX/SIMETH 30 ML UNIT-DOSE CUP PO PRN (13:30)
[2021-04-19 14:12] VITALS: BMI 30.4
[2021-04-19] MEDS ORDERED: ONDANSETRON *ODT* 4 MG TABLET ONE (16:56)
[2021-04-19] MEDS: ONDANSETRON *ODT* 4 MG TABLET SL PRN (16:58)
[2021-04-19] MEDS ORDERED: LORazepam 2 MG TABLET ONE (16:59)
[2021-04-19] MEDS: LORazepam 2 MG TABLET PO SCH ×3 (17:01→22:25)
[2021-04-19 18:10] LABS: ALBUMIN 3.5 g/dl (3.4-5.0); CALCIUM 8.7 mg/dL (8.5-10.1); HEMATOCRIT 39.6 % (35.4-49); HEMOGLOBIN 13.6 GM/dL (11.7-16.9); MCH 30.6 pg (25.7-33.7); MCHC 34.3 g/dl (32.0-35.9); MEAN CELL VOLUME 89.2 fl (80-96); MEAN PLT VOLUME 8.4 fl (7.5-11.1); PLATELET COUNT 205 10^3/uL (134-434); RBC 4.43 M/mm3 (4.00-5.60); RDW 14.6 % (11.9-15.9)
[2021-04-19 18:11] LABS: BLOOD UREA NITROGEN 6.8 mg/dL (7-18)
[2021-04-19 18:13] LABS: CREATININE 0.8 mg/dL (0.55-1.3)
[2021-04-19 18:15] LABS: BILIRUBIN,TOTAL 0.4 mg/dL (0.2-1); TOT PROT 6.5 g/dl (6.4-8.2)
[2021-04-19] MEDS ORDERED: DEXTROSE 50%-WATER - 25 GM/50 ML VIAL IVPUSH PRN (18:52)
[2021-04-19] MEDS: METHOCARBAMOL 500 MG TABLET PO PRN (19:32)
[2021-04-19] MEDS: hydrOXYzine PAMOATE 25 MG CAPSULE (FP) PO SCH ×3 (19:32→22:24)
[2021-04-19] MEDS: PRENATAL VITAMINS W/ FOLIC ACID TABLET (FP) PO SCH (21:08)
[2021-04-19] MEDS: INSULIN SLIDING SCALE (NOVOLOG) 1 VIAL SQ SCH (22:23)
[2021-04-19] MEDS: THIAMINE HCL 100 MG TABLET (FP) PO SCH (22:24)
[2021-04-19] MEDS: QUEtiapine FUMARATE 100 MG TABLET (FP) PO SCH (22:24)
[2021-04-19] MEDS: MELATONIN 5 MG TABLETS PO SCH (22:24)
[2021-04-19] MEDS: PANTOPRAZOLE 20 MG TABLET PO SCH (22:24)
[2021-04-19] MEDS: GABAPENTIN 400 MG CAPSULE PO SCH (22:25)
[2021-04-20] MEDS: hydrOXYzine PAMOATE 25 MG CAPSULE (FP) PO SCH ×5 (06:56→23:15)
[2021-04-20] MEDS: LORazepam 2 MG TABLET PO SCH ×4 (06:56→23:16)
[2021-04-20] MEDS: GABAPENTIN 400 MG CAPSULE PO SCH ×3 (06:56→23:15)
[2021-04-20] MEDS: INSULIN SLIDING SCALE (NOVOLOG) 1 VIAL SQ SCH ×4 (07:54→23:10)
[2021-04-20] MEDS: PANTOPRAZOLE 20 MG TABLET PO SCH (10:43)
[2021-04-20] MEDS: PRENATAL VITAMINS W/ FOLIC ACID TABLET (FP) PO SCH (10:43)
[2021-04-20] MEDS: METHOCARBAMOL 500 MG TABLET PO PRN (10:44)
[2021-04-20] MEDS: FLUoxetine HCL 20 MG CAPSULE PO SCH (10:45)
[2021-04-20] MEDS: ONDANSETRON *ODT* 4 MG TABLET SL PRN (10:45)
[2021-04-20] MEDS ORDERED: INSULIN (NOVOLOG) ASPART 100 UNITS/ML 10ML VIAL ONE (11:45)
[2021-04-20] MEDS ORDERED: LORazepam 1 MG TABLET PO ONE (14:00)
[2021-04-20] MEDS ORDERED: metFORMIN HCL 500 MG TABLET (FP) PO SCH (16:30)
[2021-04-20] MEDS: metFORMIN HCL 500 MG TABLET (FP) PO SCH (18:47)
[2021-04-20] MEDS ORDERED: INSULIN (LEVEMIR) 100 UNITS/ML UNITS SQ ONE (23:12)
[2021-04-20] MEDS: QUEtiapine FUMARATE 100 MG TABLET (FP) PO SCH (23:15)
[2021-04-20] MEDS: THIAMINE HCL 100 MG TABLET (FP) PO SCH (23:15)
[2021-04-20] MEDS: MELATONIN 5 MG TABLETS PO SCH (23:16)
[2021-04-21] MEDS: hydrOXYzine PAMOATE 25 MG CAPSULE (FP) PO SCH ×5 (06:09→22:27)
[2021-04-21] MEDS: metFORMIN HCL 500 MG TABLET (FP) PO SCH ×2 (06:10→17:58)
[2021-04-21] MEDS: GABAPENTIN 400 MG CAPSULE PO SCH ×3 (06:10→22:27)
[2021-04-21] MEDS: LORazepam 1 MG TABLET PO SCH ×4 (06:10→22:27)
[2021-04-21] MEDS: glipiZIDE-XL 5 MG TAB.ER.24 PO SCH (06:10)
[2021-04-21] MEDS ORDERED: INSULIN (NOVOLOG) ASPART 100 UNITS/ML 10ML VIAL ONE ×3 (07:08→17:16)
[2021-04-21] MEDS: INSULIN SLIDING SCALE (NOVOLOG) 1 VIAL SQ SCH ×4 (07:21→22:28)
[2021-04-21] MEDS: PANTOPRAZOLE 20 MG TABLET PO SCH (10:07)
[2021-04-21] MEDS: METHOCARBAMOL 500 MG TABLET PO PRN (10:07)
[2021-04-21] MEDS: FLUoxetine HCL 20 MG CAPSULE PO SCH (10:07)
[2021-04-21] MEDS: PRENATAL VITAMINS W/ FOLIC ACID TABLET (FP) PO SCH (10:09)
[2021-04-21 14:07] LABS: SARS-CoV-2 NAA Not Detected (Not Detected)
[2021-04-21] MEDS ORDERED: cloNIDine HCL 0.1 MG TABLET PO PRN (18:27)
[2021-04-21] MEDS: MELATONIN 5 MG TABLETS PO SCH (22:27)
[2021-04-21] MEDS: THIAMINE HCL 100 MG TABLET (FP) PO SCH (22:27)
[2021-04-21] MEDS: QUEtiapine FUMARATE 100 MG TABLET (FP) PO SCH (22:27)
[2021-04-22] MEDS ORDERED: LORazepam 0.5 MG TABLET PO PRN
[2021-04-22] MEDS: LORazepam 0.5 MG TABLET PO SCH ×4 (06:12→22:41)
[2021-04-22] MEDS: metFORMIN HCL 500 MG TABLET (FP) PO SCH ×2 (06:13→17:48)
[2021-04-22] MEDS: glipiZIDE-XL 5 MG TAB.ER.24 PO SCH (06:13)
[2021-04-22] MEDS: GABAPENTIN 400 MG CAPSULE PO SCH ×3 (06:13→22:41)
[2021-04-22] MEDS: hydrOXYzine PAMOATE 25 MG CAPSULE (FP) PO SCH ×5 (06:14→22:41)
[2021-04-22] MEDS: INSULIN SLIDING SCALE (NOVOLOG) 1 VIAL SQ SCH ×4 (08:01→22:42)
[2021-04-22] MEDS: PRENATAL VITAMINS W/ FOLIC ACID TABLET (FP) PO SCH (11:15)
[2021-04-22] MEDS: FLUoxetine HCL 20 MG CAPSULE PO SCH (11:16)
[2021-04-22] MEDS: PANTOPRAZOLE 20 MG TABLET PO SCH (11:16)
[2021-04-22] MEDS: THIAMINE HCL 100 MG TABLET (FP) PO SCH (22:41)
[2021-04-22] MEDS: MELATONIN 5 MG TABLETS PO SCH (22:41)
[2021-04-22] MEDS: QUEtiapine FUMARATE 100 MG TABLET (FP) PO SCH (22:41)
[2021-04-23] MEDS ORDERED: LORazepam 0.5 MG TABLET PO ONE (05:00)
[2021-04-23] MEDS: metFORMIN HCL 500 MG TABLET (FP) PO SCH (06:40)
[2021-04-23] MEDS: GABAPENTIN 400 MG CAPSULE PO SCH (06:41)
[2021-04-23] MEDS: glipiZIDE-XL 5 MG TAB.ER.24 PO SCH (06:41)
[2021-04-23] MEDS: hydrOXYzine PAMOATE 25 MG CAPSULE (FP) PO SCH ×2 (07:38→11:17)
[2021-04-23] MEDS: INSULIN SLIDING SCALE (NOVOLOG) 1 VIAL SQ SCH ×2 (07:48→11:20)
[2021-04-23 09:44] VITALS: TEMP 97.3
[2021-04-23 09:45] VITALS: BP 120/76; PULSE 90
[2021-04-23] MEDS: PANTOPRAZOLE 20 MG TABLET PO SCH (11:17)
[2021-04-23] MEDS: PRENATAL VITAMINS W/ FOLIC ACID TABLET (FP) PO SCH (11:17)
[2021-04-23] MEDS: FLUoxetine HCL 20 MG CAPSULE PO SCH (11:17)
[2021-04-23] MEDS ORDERED: INSULIN (NOVOLOG) ASPART 100 UNITS/ML 10ML VIAL ONE (11:21)
== END 2021-04-23 12:49 | disposition other institution (70) | DRG 775 ==
LOC: YASAS 13:07 → Y6N 17:06
PROVIDERS: ADMIT Allergy & Immunology; ATTEND Allergy & Immunology
PROC: HZ2ZZZZ Detoxification Services for Substance Abuse Treatment (ICD-10-PCS; principal; 2021-04-19)
DX: F10.230 Alcohol dependence with withdrawal, uncomplicated (principal); F19.24 Other psychoactive substance dependence with psychoactive substance-induced mood disorder; F41.1 Generalized anxiety disorder; E11.42 Type 2 diabetes mellitus with diabetic polyneuropathy; Z79.84 Long term (current) use of oral hypoglycemic drugs; K21.9 Gastro-esophageal reflux disease without esophagitis; E66.9 Obesity, unspecified; Z68.30 Body mass index [BMI] 30.0-30.9, adult; Z86.69 Personal history of other diseases of the nervous system and sense organs; Z91.14 Patient's other noncompliance with medication regimen
CPT/HCPCS: 36415; 80053; 82962; 83036; 85027; 86780; C9803; Q0162; U0003; U0005

== ENCOUNTER 2021-04-23 08:31 | Inpatient (IN) | payer OTHER ==
[2021-04-23] MEDS ORDERED: MAGNESIUM CITRATE 300 ML BOTTLE PO PRN (13:50)
[2021-04-23] MEDS ORDERED: NICOTINE POLACRILEX 2 MG GUM BUC PRN (13:50)
[2021-04-23] MEDS ORDERED: guaiFENesin 200 MG/10 ML 10 ML UNIT-DOSE CUPS PO PRN (13:50)
[2021-04-23] MEDS ORDERED: LOPERAMIDE HCL 2 MG CAPSULE PO PRN (13:50)
[2021-04-23] MEDS ORDERED: MAG HYDROX/AL HYDROX/SIMETH 30 ML UNIT-DOSE CUP PO PRN (13:50)
[2021-04-23] MEDS ORDERED: IBUPROFEN 400 MG TABLET (FP) PO PRN (13:50)
[2021-04-23] MEDS ORDERED: MAGNESIUM HYDROX 2400MG/30ML ORAL SUSPENSION 30 ML CUP PO PRN (13:50)
[2021-04-23] MEDS ORDERED: NICOTINE 10 MG CARTRIDGE (INHALER) IH PRN (13:50)
[2021-04-23] MEDS ORDERED: hydrOXYzine PAMOATE 25 MG CAPSULE (FP) PO PRN (13:50)
[2021-04-23] MEDS ORDERED: P-EPHED 60MG/TRIPROLIDI 2.5MG TABLET PO PRN (13:50)
[2021-04-23] MEDS: GABAPENTIN 400 MG CAPSULE PO SCH ×2 (14:55→21:18)
[2021-04-23] MEDS: metFORMIN HCL 500 MG TABLET (FP) PO SCH (16:50)
[2021-04-23] MEDS ORDERED: INSULIN (NOVOLOG) ASPART 100 UNITS/ML 10ML VIAL ONE (16:52)
[2021-04-23] MEDS: INSULIN SLIDING SCALE (NOVOLOG) 1 VIAL SQ SCH ×2 (16:53→21:20)
[2021-04-23] MEDS: THIAMINE HCL 100 MG TABLET (FP) PO SCH (21:18)
[2021-04-23] MEDS: MELATONIN 5 MG TABLETS PO SCH (21:18)
[2021-04-23] MEDS: QUEtiapine FUMARATE 50 MG TABLET PO SCH (21:19)
[2021-04-24] MEDS: metFORMIN HCL 500 MG TABLET (FP) PO SCH ×2 (06:47→17:28)
[2021-04-24] MEDS: GABAPENTIN 400 MG CAPSULE PO SCH ×3 (06:47→21:29)
[2021-04-24] MEDS: glipiZIDE-XL 5 MG TAB.ER.24 PO SCH (06:47)
[2021-04-24] MEDS ORDERED: INSULIN (NOVOLOG) ASPART 100 UNITS/ML 10ML VIAL ONE ×2 (06:50→17:20)
[2021-04-24] MEDS: INSULIN SLIDING SCALE (NOVOLOG) 1 VIAL SQ SCH ×3 (06:50→17:28)
[2021-04-24] MEDS: PRENATAL VITAMINS W/ FOLIC ACID TABLET (FP) PO SCH (09:40)
[2021-04-24] MEDS: PANTOPRAZOLE 20 MG TABLET PO SCH (09:40)
[2021-04-24] MEDS: ACETAMINOPHEN 325 MG TABLET (FP) PO PRN (09:41)
[2021-04-24] MEDS: FLUoxetine HCL 20 MG CAPSULE PO SCH (10:28)
[2021-04-24] MEDS ORDERED: INSULIN SLIDING SCALE (NOVOLOG) 1 VIAL SQ SCH (13:45)
[2021-04-24] MEDS: QUEtiapine FUMARATE 50 MG TABLET PO SCH (21:29)
[2021-04-24] MEDS: THIAMINE HCL 100 MG TABLET (FP) PO SCH (21:29)
[2021-04-24] MEDS: MELATONIN 5 MG TABLETS PO SCH (23:00)
[2021-04-25] MEDS: GABAPENTIN 400 MG CAPSULE PO SCH ×3 (06:51→21:28)
[2021-04-25] MEDS: glipiZIDE-XL 5 MG TAB.ER.24 PO SCH (06:51)
[2021-04-25] MEDS: metFORMIN HCL 500 MG TABLET (FP) PO SCH ×2 (06:51→16:57)
[2021-04-25] MEDS ORDERED: INSULIN (NOVOLOG) ASPART 100 UNITS/ML 10ML VIAL ONE (06:53)
[2021-04-25] MEDS: INSULIN SLIDING SCALE (NOVOLOG) 1 VIAL SQ SCH ×2 (06:55→16:59)
[2021-04-25] MEDS: PANTOPRAZOLE 20 MG TABLET PO SCH (09:57)
[2021-04-25] MEDS: FLUoxetine HCL 20 MG CAPSULE PO SCH (09:57)
[2021-04-25] MEDS: PRENATAL VITAMINS W/ FOLIC ACID TABLET (FP) PO SCH (09:57)
[2021-04-25] MEDS: THIAMINE HCL 100 MG TABLET (FP) PO SCH (21:26)
[2021-04-25] MEDS: MELATONIN 5 MG TABLETS PO SCH (21:26)
[2021-04-25] MEDS: QUEtiapine FUMARATE 50 MG TABLET PO SCH (21:28)
[2021-04-25] MEDS: ACETAMINOPHEN 325 MG TABLET (FP) PO PRN (22:25)
[2021-04-26] MEDS: glipiZIDE-XL 5 MG TAB.ER.24 PO SCH (06:30)
[2021-04-26] MEDS: GABAPENTIN 400 MG CAPSULE PO SCH ×3 (06:30→21:55)
[2021-04-26] MEDS: metFORMIN HCL 500 MG TABLET (FP) PO SCH ×2 (06:30→17:15)
[2021-04-26] MEDS: INSULIN SLIDING SCALE (NOVOLOG) 1 VIAL SQ SCH ×2 (06:38→17:15)
[2021-04-26] MEDS: FLUoxetine HCL 20 MG CAPSULE PO SCH (09:56)
[2021-04-26] MEDS: PRENATAL VITAMINS W/ FOLIC ACID TABLET (FP) PO SCH (09:56)
[2021-04-26] MEDS: PANTOPRAZOLE 20 MG TABLET PO SCH (09:56)
[2021-04-26] MEDS ORDERED: INSULIN (NOVOLOG) ASPART 100 UNITS/ML 10ML VIAL ONE (17:33)
[2021-04-26] MEDS: MELATONIN 5 MG TABLETS PO SCH (21:55)
[2021-04-26] MEDS: QUEtiapine FUMARATE 50 MG TABLET PO SCH (21:56)
[2021-04-26] MEDS: THIAMINE HCL 100 MG TABLET (FP) PO SCH (21:56)
[2021-04-27] MEDS: GABAPENTIN 400 MG CAPSULE PO SCH ×3 (06:35→22:06)
[2021-04-27] MEDS: metFORMIN HCL 500 MG TABLET (FP) PO SCH ×2 (06:35→17:18)
[2021-04-27] MEDS: glipiZIDE-XL 5 MG TAB.ER.24 PO SCH (06:35)
[2021-04-27] MEDS: INSULIN SLIDING SCALE (NOVOLOG) 1 VIAL SQ SCH ×2 (06:38→17:18)
[2021-04-27] MEDS: DEXTROAMPHETAMINE/AMPHETAMINE 10 MG CAP.ER.24H PO SCH (09:28)
[2021-04-27] MEDS: PANTOPRAZOLE 20 MG TABLET PO SCH (09:28)
[2021-04-27] MEDS: PRENATAL VITAMINS W/ FOLIC ACID TABLET (FP) PO SCH (09:28)
[2021-04-27] MEDS: FLUoxetine HCL 20 MG CAPSULE PO SCH (09:28)
[2021-04-27 10:08] LABS: SARS-CoV-2 NAA Not Detected (Not Detected)
[2021-04-27] MEDS: THIAMINE HCL 100 MG TABLET (FP) PO SCH (22:06)
[2021-04-27] MEDS: QUEtiapine FUMARATE 50 MG TABLET PO SCH (22:06)
[2021-04-27] MEDS: MELATONIN 5 MG TABLETS PO SCH (22:06)
[2021-04-28] MEDS: metFORMIN HCL 500 MG TABLET (FP) PO SCH ×2 (06:36→16:52)
[2021-04-28] MEDS: GABAPENTIN 400 MG CAPSULE PO SCH ×3 (06:37→22:30)
[2021-04-28] MEDS: INSULIN SLIDING SCALE (NOVOLOG) 1 VIAL SQ SCH ×2 (06:37→16:30)
[2021-04-28] MEDS: glipiZIDE-XL 5 MG TAB.ER.24 PO SCH (06:37)
[2021-04-28] MEDS: PANTOPRAZOLE 20 MG TABLET PO SCH (09:25)
[2021-04-28] MEDS: DEXTROAMPHETAMINE/AMPHETAMINE 10 MG CAP.ER.24H PO SCH (09:25)
[2021-04-28] MEDS: FLUoxetine HCL 20 MG CAPSULE PO SCH (09:25)
[2021-04-28] MEDS: PRENATAL VITAMINS W/ FOLIC ACID TABLET (FP) PO SCH (09:25)
[2021-04-28] MEDS: THIAMINE HCL 100 MG TABLET (FP) PO SCH (22:32)
[2021-04-28] MEDS: MELATONIN 5 MG TABLETS PO SCH (22:32)
[2021-04-28] MEDS: QUEtiapine FUMARATE 50 MG TABLET PO SCH (22:32)
[2021-04-29] MEDS: glipiZIDE-XL 5 MG TAB.ER.24 PO SCH (06:54)
[2021-04-29] MEDS: GABAPENTIN 400 MG CAPSULE PO SCH ×3 (06:54→21:45)
[2021-04-29] MEDS: metFORMIN HCL 500 MG TABLET (FP) PO SCH ×2 (06:54→16:41)
[2021-04-29] MEDS: INSULIN SLIDING SCALE (NOVOLOG) 1 VIAL SQ SCH ×2 (06:55→16:41)
[2021-04-29] MEDS: DEXTROAMPHETAMINE/AMPHETAMINE 10 MG CAP.ER.24H PO SCH (10:22)
[2021-04-29] MEDS: PANTOPRAZOLE 20 MG TABLET PO SCH (10:22)
[2021-04-29] MEDS: FLUoxetine HCL 20 MG CAPSULE PO SCH (10:22)
[2021-04-29] MEDS: PRENATAL VITAMINS W/ FOLIC ACID TABLET (FP) PO SCH (10:22)
[2021-04-29] MEDS ORDERED: INSULIN (NOVOLOG) ASPART 100 UNITS/ML 10ML VIAL ONE (16:45)
[2021-04-29] MEDS: THIAMINE HCL 100 MG TABLET (FP) PO SCH (21:45)
[2021-04-29] MEDS: QUEtiapine FUMARATE 50 MG TABLET PO SCH (21:45)
[2021-04-29] MEDS: MELATONIN 5 MG TABLETS PO SCH (21:46)
[2021-04-30] MEDS: glipiZIDE-XL 5 MG TAB.ER.24 PO SCH (06:40)
[2021-04-30] MEDS: GABAPENTIN 400 MG CAPSULE PO SCH ×3 (06:40→21:28)
[2021-04-30] MEDS: metFORMIN HCL 500 MG TABLET (FP) PO SCH ×2 (06:40→16:56)
[2021-04-30] MEDS: INSULIN SLIDING SCALE (NOVOLOG) 1 VIAL SQ SCH ×2 (06:42→16:56)
[2021-04-30] MEDS: FLUoxetine HCL 20 MG CAPSULE PO SCH (09:30)
[2021-04-30] MEDS: DEXTROAMPHETAMINE/AMPHETAMINE 10 MG CAP.ER.24H PO SCH (09:30)
[2021-04-30] MEDS: PRENATAL VITAMINS W/ FOLIC ACID TABLET (FP) PO SCH (09:30)
[2021-04-30] MEDS: PANTOPRAZOLE 20 MG TABLET PO SCH (09:30)
[2021-04-30] MEDS: ACETAMINOPHEN 325 MG TABLET (FP) PO PRN (09:31)
[2021-04-30] MEDS ORDERED: INSULIN (NOVOLOG) ASPART 100 UNITS/ML 10ML VIAL ONE (17:00)
[2021-04-30] MEDS: MELATONIN 5 MG TABLETS PO SCH (21:28)
[2021-04-30] MEDS: QUEtiapine FUMARATE 50 MG TABLET PO SCH (21:28)
[2021-04-30] MEDS: THIAMINE HCL 100 MG TABLET (FP) PO SCH (21:28)
[2021-05-01] MEDS: metFORMIN HCL 500 MG TABLET (FP) PO SCH ×2 (06:35→17:02)
[2021-05-01] MEDS: glipiZIDE-XL 5 MG TAB.ER.24 PO SCH (06:35)
[2021-05-01] MEDS: GABAPENTIN 400 MG CAPSULE PO SCH ×3 (06:35→21:25)
[2021-05-01] MEDS: INSULIN SLIDING SCALE (NOVOLOG) 1 VIAL SQ SCH ×2 (07:02→17:03)
[2021-05-01] MEDS: DEXTROAMPHETAMINE/AMPHETAMINE 10 MG CAP.ER.24H PO SCH (10:12)
[2021-05-01] MEDS: PRENATAL VITAMINS W/ FOLIC ACID TABLET (FP) PO SCH (10:12)
[2021-05-01] MEDS: FLUoxetine HCL 20 MG CAPSULE PO SCH (10:13)
[2021-05-01] MEDS: PANTOPRAZOLE 20 MG TABLET PO SCH (10:13)
[2021-05-01] MEDS ORDERED: INSULIN (NOVOLOG) ASPART 100 UNITS/ML 10ML VIAL ONE (17:01)
[2021-05-01] MEDS: THIAMINE HCL 100 MG TABLET (FP) PO SCH (21:24)
[2021-05-01] MEDS: QUEtiapine FUMARATE 50 MG TABLET PO SCH (21:25)
[2021-05-01] MEDS: MELATONIN 5 MG TABLETS PO SCH (21:26)
[2021-05-02] MEDS: glipiZIDE-XL 5 MG TAB.ER.24 PO SCH (06:26)
[2021-05-02] MEDS: metFORMIN HCL 500 MG TABLET (FP) PO SCH ×2 (06:26→16:47)
[2021-05-02] MEDS: GABAPENTIN 400 MG CAPSULE PO SCH ×3 (06:26→21:54)
[2021-05-02] MEDS: INSULIN SLIDING SCALE (NOVOLOG) 1 VIAL SQ SCH ×2 (06:28→16:48)
[2021-05-02] MEDS: PANTOPRAZOLE 20 MG TABLET PO SCH (09:54)
[2021-05-02] MEDS: FLUoxetine HCL 20 MG CAPSULE PO SCH (09:54)
[2021-05-02] MEDS: DEXTROAMPHETAMINE/AMPHETAMINE 10 MG CAP.ER.24H PO SCH (09:54)
[2021-05-02] MEDS: PRENATAL VITAMINS W/ FOLIC ACID TABLET (FP) PO SCH (09:55)
[2021-05-02] MEDS ORDERED: INSULIN (NOVOLOG) ASPART 100 UNITS/ML 10ML VIAL ONE (16:49)
[2021-05-02] MEDS: THIAMINE HCL 100 MG TABLET (FP) PO SCH (21:54)
[2021-05-02] MEDS: MELATONIN 5 MG TABLETS PO SCH (21:54)
[2021-05-02] MEDS: QUEtiapine FUMARATE 50 MG TABLET PO SCH (21:55)
[2021-05-03] MEDS: metFORMIN HCL 500 MG TABLET (FP) PO SCH ×2 (06:49→17:00)
[2021-05-03] MEDS: GABAPENTIN 400 MG CAPSULE PO SCH ×3 (06:49→21:08)
[2021-05-03] MEDS: glipiZIDE-XL 5 MG TAB.ER.24 PO SCH (06:49)
[2021-05-03] MEDS: INSULIN SLIDING SCALE (NOVOLOG) 1 VIAL SQ SCH ×2 (06:50→17:02)
[2021-05-03] MEDS: DEXTROAMPHETAMINE/AMPHETAMINE 10 MG CAP.ER.24H PO SCH (09:54)
[2021-05-03] MEDS: PANTOPRAZOLE 20 MG TABLET PO SCH (09:55)
[2021-05-03] MEDS: PRENATAL VITAMINS W/ FOLIC ACID TABLET (FP) PO SCH (09:55)
[2021-05-03] MEDS: FLUoxetine HCL 20 MG CAPSULE PO SCH (09:55)
[2021-05-03] MEDS ORDERED: INSULIN (NOVOLOG) ASPART 100 UNITS/ML 10ML VIAL ONE (16:58)
[2021-05-03] MEDS: ACETAMINOPHEN 325 MG TABLET (FP) PO PRN (17:00)
[2021-05-03] MEDS: QUEtiapine FUMARATE 50 MG TABLET PO SCH (21:08)
[2021-05-03] MEDS: MELATONIN 5 MG TABLETS PO SCH (21:09)
[2021-05-03] MEDS: THIAMINE HCL 100 MG TABLET (FP) PO SCH (21:09)
[2021-05-04] MEDS: GABAPENTIN 400 MG CAPSULE PO SCH ×3 (06:47→21:20)
[2021-05-04] MEDS: glipiZIDE-XL 5 MG TAB.ER.24 PO SCH (06:47)
[2021-05-04] MEDS: metFORMIN HCL 500 MG TABLET (FP) PO SCH ×2 (06:48→16:56)
[2021-05-04] MEDS: INSULIN SLIDING SCALE (NOVOLOG) 1 VIAL SQ SCH ×2 (07:12→16:55)
[2021-05-04] MEDS: FLUoxetine HCL 20 MG CAPSULE PO SCH (09:46)
[2021-05-04] MEDS: PRENATAL VITAMINS W/ FOLIC ACID TABLET (FP) PO SCH (09:46)
[2021-05-04] MEDS: PANTOPRAZOLE 20 MG TABLET PO SCH (09:46)
[2021-05-04] MEDS ORDERED: DEXTROAMPHETAMINE/AMPHETAMINE 10 MG CAP.ER.24H PO SCH ×2 (10:00)
[2021-05-04] MEDS ORDERED: DEXTROAMPHETAMINE/AMPHETAMINE 10 MG CAP.ER.24H PO ONE (10:00)
[2021-05-04] MEDS ORDERED: INSULIN (NOVOLOG) ASPART 100 UNITS/ML 10ML VIAL ONE (16:49)
[2021-05-04] MEDS: QUEtiapine FUMARATE 50 MG TABLET PO SCH (21:20)
[2021-05-04] MEDS: THIAMINE HCL 100 MG TABLET (FP) PO SCH (21:20)
[2021-05-04] MEDS: MELATONIN 5 MG TABLETS PO SCH (21:20)
[2021-05-05] MEDS: metFORMIN HCL 500 MG TABLET (FP) PO SCH ×2 (06:41→16:40)
[2021-05-05] MEDS: GABAPENTIN 400 MG CAPSULE PO SCH ×3 (06:41→21:20)
[2021-05-05] MEDS: glipiZIDE-XL 5 MG TAB.ER.24 PO SCH (06:41)
[2021-05-05] MEDS: INSULIN SLIDING SCALE (NOVOLOG) 1 VIAL SQ SCH ×2 (07:47→16:42)
[2021-05-05] MEDS: FLUoxetine HCL 20 MG CAPSULE PO SCH (09:57)
[2021-05-05] MEDS: PRENATAL VITAMINS W/ FOLIC ACID TABLET (FP) PO SCH (09:57)
[2021-05-05] MEDS: PANTOPRAZOLE 20 MG TABLET PO SCH (09:57)
[2021-05-05] MEDS: DEXTROAMPHETAMINE/AMPHETAMINE 10 MG CAP.ER.24H PO SCH (11:50)
[2021-05-05] MEDS ORDERED: INSULIN (NOVOLOG) ASPART 100 UNITS/ML 10ML VIAL ONE (16:41)
[2021-05-05] MEDS: THIAMINE HCL 100 MG TABLET (FP) PO SCH (21:19)
[2021-05-05] MEDS: MELATONIN 5 MG TABLETS PO SCH (21:19)
[2021-05-05] MEDS: QUEtiapine FUMARATE 50 MG TABLET PO SCH (21:20)
[2021-05-06] MEDS: glipiZIDE-XL 5 MG TAB.ER.24 PO SCH (06:30)
[2021-05-06] MEDS: metFORMIN HCL 500 MG TABLET (FP) PO SCH ×2 (06:30→16:56)
[2021-05-06] MEDS: GABAPENTIN 400 MG CAPSULE PO SCH ×3 (06:31→21:16)
[2021-05-06] MEDS: INSULIN SLIDING SCALE (NOVOLOG) 1 VIAL SQ SCH ×2 (07:24→16:56)
[2021-05-06] MEDS: DEXTROAMPHETAMINE/AMPHETAMINE 10 MG CAP.ER.24H PO SCH (09:46)
[2021-05-06] MEDS: PANTOPRAZOLE 20 MG TABLET PO SCH (09:47)
[2021-05-06] MEDS: FLUoxetine HCL 20 MG CAPSULE PO SCH (09:47)
[2021-05-06] MEDS: PRENATAL VITAMINS W/ FOLIC ACID TABLET (FP) PO SCH (09:47)
[2021-05-06] MEDS ORDERED: INSULIN (NOVOLOG) ASPART 100 UNITS/ML 10ML VIAL ONE (16:55)
[2021-05-06] MEDS: THIAMINE HCL 100 MG TABLET (FP) PO SCH (21:16)
[2021-05-06] MEDS: QUEtiapine FUMARATE 50 MG TABLET PO SCH (21:16)
[2021-05-06] MEDS: MELATONIN 5 MG TABLETS PO SCH (21:16)
[2021-05-07] MEDS: glipiZIDE-XL 5 MG TAB.ER.24 PO SCH (06:32)
[2021-05-07] MEDS: metFORMIN HCL 500 MG TABLET (FP) PO SCH ×2 (06:32→16:58)
[2021-05-07] MEDS: GABAPENTIN 400 MG CAPSULE PO SCH ×3 (06:32→21:32)
[2021-05-07] MEDS: INSULIN SLIDING SCALE (NOVOLOG) 1 VIAL SQ SCH ×2 (06:36→16:59)
[2021-05-07] MEDS: FLUoxetine HCL 20 MG CAPSULE PO SCH (09:52)
[2021-05-07] MEDS: PANTOPRAZOLE 20 MG TABLET PO SCH (09:52)
[2021-05-07] MEDS: DEXTROAMPHETAMINE/AMPHETAMINE 10 MG CAP.ER.24H PO SCH (09:52)
[2021-05-07] MEDS: PRENATAL VITAMINS W/ FOLIC ACID TABLET (FP) PO SCH (09:52)
[2021-05-07] MEDS: THIAMINE HCL 100 MG TABLET (FP) PO SCH (21:32)
[2021-05-07] MEDS: MELATONIN 5 MG TABLETS PO SCH (21:33)
[2021-05-07] MEDS: QUEtiapine FUMARATE 50 MG TABLET PO SCH (21:33)
[2021-05-08] MEDS: glipiZIDE-XL 5 MG TAB.ER.24 PO SCH (06:45)
[2021-05-08] MEDS: GABAPENTIN 400 MG CAPSULE PO SCH (06:45)
[2021-05-08] MEDS: metFORMIN HCL 500 MG TABLET (FP) PO SCH (06:45)
[2021-05-08] MEDS: INSULIN SLIDING SCALE (NOVOLOG) 1 VIAL SQ SCH (06:46)
[2021-05-08 06:47] VITALS: BP 116/76; PULSE 88; TEMP 97.3
[2021-05-08] MEDS: DEXTROAMPHETAMINE/AMPHETAMINE 10 MG CAP.ER.24H PO SCH (09:18)
[2021-05-08] MEDS: PRENATAL VITAMINS W/ FOLIC ACID TABLET (FP) PO SCH (09:18)
[2021-05-08] MEDS: PANTOPRAZOLE 20 MG TABLET PO SCH (09:18)
[2021-05-08] MEDS: FLUoxetine HCL 20 MG CAPSULE PO SCH (09:19)
== END 2021-05-08 09:32 | disposition home or self-care (01) | DRG 772 ==
LOC: YASAS 08:31 → Y3E 08:32
PROVIDERS: ADMIT Allergy & Immunology; ATTEND Allergy & Immunology
PROC: HZ42ZZZ Group Counseling for Substance Abuse Treatment, Cognitive-Behavioral (ICD-10-PCS; principal; 2021-04-23)
DX: F10.20 Alcohol dependence, uncomplicated (principal); F90.9 Attention-deficit hyperactivity disorder, unspecified type; F41.1 Generalized anxiety disorder; F32.A Depression, unspecified; G62.9 Polyneuropathy, unspecified; K21.9 Gastro-esophageal reflux disease without esophagitis; E11.9 Type 2 diabetes mellitus without complications; Z79.84 Long term (current) use of oral hypoglycemic drugs; Z56.0 Unemployment, unspecified; Z59.01 Sheltered homelessness
CPT/HCPCS: 82962; 93005; 93010; C9803; U0003; U0005

== ENCOUNTER 2021-07-08 16:23 | Inpatient (IN) | payer OTHER ==
[2021-07-08 18:54] VITALS: TEMP 98.1; BMI 31.6
[2021-07-09] MEDS ORDERED: METHOCARBAMOL 500 MG TABLET PO PRN (00:02)
[2021-07-09] MEDS ORDERED: DICYCLOMINE HCL 10 MG CAPSULE PO PRN (00:02)
[2021-07-09] MEDS ORDERED: ACETAMINOPHEN 325 MG TABLET (FP) PO PRN ×2 (00:02)
[2021-07-09] MEDS ORDERED: ONDANSETRON *ODT* 4 MG TABLET SL PRN (00:02)
[2021-07-09] MEDS ORDERED: BENZOCAINE/MENTHOL (CHLORASEPTIC ) LOZENGE MM PRN (00:02)
[2021-07-09] MEDS ORDERED: BISMUTH SUBSALICYLATE 524 MG/30 ML PO PRN (00:02)
[2021-07-09] MEDS ORDERED: MAGNESIUM CITRATE 300 ML BOTTLE PO PRN (00:02)
[2021-07-09] MEDS ORDERED: MAG HYDROX/AL HYDROX/SIMETH 30 ML UNIT-DOSE CUP PO PRN (00:02)
[2021-07-09] MEDS ORDERED: MAGNESIUM HYDROX 2400MG/30ML ORAL SUSPENSION 30 ML CUP PO PRN (00:02)
[2021-07-09] MEDS ORDERED: LOPERAMIDE HCL 2 MG CAPSULE PO PRN (00:02)
[2021-07-09] MEDS ORDERED: IBUPROFEN 400 MG TABLET (FP) PO PRN (00:02)
[2021-07-09] MEDS ORDERED: chlordiazePOXIDE HCL 25 MG CAPSULE PO PRN (00:25)
[2021-07-09] MEDS ORDERED: chlordiazePOXIDE HCL 25 MG CAPSULE ONE ×2 (01:45→06:18)
[2021-07-09] MEDS ORDERED: chlordiazePOXIDE HCL 25 MG CAPSULE PO ONE (02:21)
[2021-07-09] MEDS ORDERED: ACETAMINOPHEN 325 MG TABLET (FP) ONE (06:18)
[2021-07-09] MEDS: chlordiazePOXIDE HCL 25 MG CAPSULE PO SCH ×2 (06:24→15:33)
[2021-07-09] MEDS ORDERED: ONDANSETRON *ODT* 4 MG TABLET ONE (07:32)
[2021-07-09 09:11] VITALS: BP 135/89; PULSE 141
[2021-07-09] MEDS ORDERED: PRENATAL VITAMINS W/ FOLIC ACID TABLET (FP) PO SCH (10:00)
[2021-07-09] MEDS ORDERED: PANTOPRAZOLE 20 MG TABLET PO SCH (10:00)
[2021-07-09] MEDS ORDERED: metFORMIN HCL 500 MG TABLET (FP) PO SCH (16:30)
[2021-07-09] MEDS ORDERED: THIAMINE HCL 100 MG TABLET (FP) PO SCH (22:00)
[2021-07-09] MEDS ORDERED: MELATONIN 5 MG TABLETS PO SCH (22:00)
[2021-07-10] MEDS ORDERED: chlordiazePOXIDE HCL 25 MG CAPSULE PO SCH (05:00)
[2021-07-10] MEDS ORDERED: glipiZIDE-XL 5 MG TAB.ER.24 PO SCH (07:00)
[2021-07-11] MEDS ORDERED: chlordiazePOXIDE HCL 10 MG CAPSULE PO PRN
[2021-07-11] MEDS ORDERED: chlordiazePOXIDE HCL 10 MG CAPSULE PO SCH (05:00)
[2021-07-12] MEDS ORDERED: chlordiazePOXIDE HCL 10 MG CAPSULE PO SCH (05:00)
[2021-07-13] MEDS ORDERED: chlordiazePOXIDE HCL 10 MG CAPSULE PO ONE (05:00)
== END 2021-07-09 15:58 | disposition short-term general hospital (02) | DRG 775 ==
LOC: YASAS 16:23 → Y6N 07-09 08:50
PROVIDERS: ADMIT Allergy & Immunology; ATTEND Allergy & Immunology
PROC: HZ2ZZZZ Detoxification Services for Substance Abuse Treatment (ICD-10-PCS; principal; 2021-07-09)
DX: F10.230 Alcohol dependence with withdrawal, uncomplicated (principal); F90.9 Attention-deficit hyperactivity disorder, unspecified type; F32.A Depression, unspecified; F41.9 Anxiety disorder, unspecified; I47.1 Supraventricular tachycardia; E11.40 Type 2 diabetes mellitus with diabetic neuropathy, unspecified; K21.9 Gastro-esophageal reflux disease without esophagitis; Z56.0 Unemployment, unspecified; Z59.00 Homelessness unspecified; Z79.84 Long term (current) use of oral hypoglycemic drugs
CPT/HCPCS: 82962; 93005; 93010; C9803-CS; Q0162; U0003; U0005

== ENCOUNTER 2021-07-09 10:01 | Inpatient (IN) | payer OTHER ==
[2021-07-09] MEDS ORDERED: ONDANSETRON 4 MG/2 ML VIAL IVPUSH ONE (10:32)
[2021-07-09] MEDS ORDERED: diazePAM CARPU-JECT 10 MG/2 ML DISP.SYRIN IVPUSH ONE (10:53)
[2021-07-09] MEDS ORDERED: SODIUM CHLORIDE 0.9% 500 ML INFUS.BAG IV ONE (10:53)
[2021-07-09] MEDS ORDERED: ONDANSETRON 4 MG/2 ML VIAL ONE (10:53)
[2021-07-09] MEDS ORDERED: diazePAM CARPU-JECT 10 MG/2 ML DISP.SYRIN ONE (11:00)
[2021-07-09 11:23] LABS: EOS % 0.4 % (0-4.5); HEMATOCRIT 41.1 % (35.4-49); HEMOGLOBIN 13.9 GM/dL (11.7-16.9); LYMPH % 19.4 % (8-40); MCH 28.8 pg (25.7-33.7); MCHC 33.8 g/dl (32.0-35.9); MEAN CELL VOLUME 85.3 fl (80-96); MEAN PLT VOLUME 8.5 fl (7.5-11.1); MONO % 11.7 % (3.8-10.2); NEUT % 67.5 % (42.8-82.8); PLATELET COUNT 158 10^3/uL (134-434); RBC 4.83 M/mm3 (4.00-5.60); RDW 14.7 % (11.9-15.9); WHITE BLOOD COUNT 4.4 K/mm3 (4.0-10.0)
[2021-07-09 11:31] LABS: VENOUS BASE EXCESS 1.1 mmol/L (-2-2); VENOUS O2 SATURATION 77.4 % (70-80); VENOUS PH 7.454 (7.310-7.410)
[2021-07-09 11:32] LABS: ALBUMIN 3.6 g/dl (3.4-5.0); CALCIUM 8.6 mg/dL (8.5-10.1); INR 0.97 (0.83-1.09); PROTHROMBIN TIME (PATIENT) 11.1 SEC (9.7-13.0)
[2021-07-09 11:35] LABS: ACTIVATED PTT 27.3 SECONDS (25.2-36.5); CREATININE 0.8 mg/dL (0.55-1.3)
[2021-07-09 11:37] LABS: BILIRUBIN,TOTAL 0.7 mg/dL (0.2-1); TOT PROT 6.8 g/dl (6.4-8.2)
[2021-07-09] MEDS ORDERED: FOLIC ACID INJECTION - 1 MG, THIAMINE HCL 100 MG, MULTIVIT INJECTION ADULT 10 ML in SOD... IVPB ONE (12:19)
[2021-07-09] MEDS ORDERED: ACETAMINOPHEN 325 MG TABLET (FP) ONE (12:56)
[2021-07-09] MEDS ORDERED: GABAPENTIN 400 MG CAPSULE ONE (12:56)
[2021-07-09] MEDS ORDERED: ACETAMINOPHEN 325 MG TABLET (FP) PO ONE ×2 (13:07→22:11)
[2021-07-09] MEDS ORDERED: FLUoxetine HCL 20 MG CAPSULE PO ONE (13:07)
[2021-07-09] MEDS ORDERED: GABAPENTIN 400 MG CAPSULE PO ONE (13:07)
[2021-07-09 13:28] LABS: URINE APPEARANCE CLEAR; URINE BILIRUBIN NEGATIVE (NEGATIVE); URINE COLOR YELLOW; URINE GLUCOSE (UA) 2+ (NEGATIVE); URINE KETONE 2+ (NEGATIVE); URINE LEUK ESTERASE NEGATIVE (NEGATIVE); URINE NITRITE NEGATIVE (NEGATIVE); URINE PROTEIN NEGATIVE (NEGATIVE); URINE UROBILINOGEN 0.2 mg/dL (0.2-1.0)
[2021-07-09] MEDS ORDERED: LORazepam 1 MG TABLET PO PRN (13:37)
[2021-07-09] MEDS: GABAPENTIN 400 MG CAPSULE PO SCH ×2 (13:43→21:33)
[2021-07-09] MEDS ORDERED: ONDANSETRON 4 MG/2 ML VIAL IVPUSH PRN (15:54)
[2021-07-09 16:06] VITALS: BMI 29.0
[2021-07-09] MEDS ORDERED: INSULIN SLIDING SCALE (NOVOLOG) 1 VIAL SQ ONE (16:38)
[2021-07-09] MEDS: LORazepam 1 MG TABLET PO SCH ×2 (16:41→22:38)
[2021-07-09] MEDS ORDERED: LORazepam 2 MG TABLET PO SCH (17:00)
[2021-07-09] MEDS: INSULIN SLIDING SCALE (NOVOLOG) 1 VIAL SQ SCH ×2 (17:51→21:33)
[2021-07-09] MEDS: QUEtiapine FUMARATE 100 MG TABLET (FP) PO SCH (21:33)
[2021-07-10] MEDS: LORazepam 1 MG TABLET PO SCH ×4 (05:05→22:59)
[2021-07-10] MEDS: GABAPENTIN 400 MG CAPSULE PO SCH ×3 (06:42→22:17)
[2021-07-10] MEDS: INSULIN SLIDING SCALE (NOVOLOG) 1 VIAL SQ SCH ×4 (06:43→22:18)
[2021-07-10] MEDS: THIAMINE HCL 100 MG TABLET (FP) PO SCH (10:51)
[2021-07-10] MEDS: FOLIC ACID 1 MG TABLET (FP) PO SCH (10:51)
[2021-07-10 12:01] LABS: ALBUMIN 3.3 g/dl (3.4-5.0); BLOOD UREA NITROGEN 7.1 mg/dL (7-18); CALCIUM 8.9 mg/dL (8.5-10.1)
[2021-07-10 12:04] LABS: CREATININE 0.9 mg/dL (0.55-1.3)
[2021-07-10 12:06] LABS: BILIRUBIN,TOTAL 0.4 mg/dL (0.2-1); TOT PROT 6.4 g/dl (6.4-8.2)
[2021-07-10] MEDS: FLUoxetine HCL 20 MG CAPSULE PO SCH (12:55)
[2021-07-10] MEDS: QUEtiapine FUMARATE 100 MG TABLET (FP) PO SCH (22:17)
[2021-07-11] MEDS: LORazepam 1 MG TABLET PO SCH ×4 (05:06→22:59)
[2021-07-11] MEDS: GABAPENTIN 400 MG CAPSULE PO SCH ×3 (05:06→22:33)
[2021-07-11] MEDS: INSULIN SLIDING SCALE (NOVOLOG) 1 VIAL SQ SCH ×4 (06:26→22:34)
[2021-07-11 08:08] LABS: BASO % 0.9 % (0-2.0); EOS % 3.1 % (0-4.5); HEMATOCRIT 40.7 % (35.4-49); HEMOGLOBIN 13.5 GM/dL (11.7-16.9); LYMPH % 40.9 % (8-40); MCH 28.7 pg (25.7-33.7); MCHC 33.2 g/dl (32.0-35.9); MEAN CELL VOLUME 86.7 fl (80-96); MEAN PLT VOLUME 8.9 fl (7.5-11.1); NEUT % 47.1 % (42.8-82.8); PLATELET COUNT 139 10^3/uL (134-434); RBC 4.69 M/mm3 (4.00-5.60); WHITE BLOOD COUNT 4.6 K/mm3 (4.0-10.0)
[2021-07-11 08:36] LABS: BLOOD UREA NITROGEN 9.5 mg/dL (7-18); CALCIUM 8.8 mg/dL (8.5-10.1); MAGNESIUM 2.3 mg/dL (1.8-2.4)
[2021-07-11 08:37] LABS: ALBUMIN 3.2 g/dl (3.4-5.0)
[2021-07-11 08:40] LABS: CREATININE 0.7 mg/dL (0.55-1.3)
[2021-07-11 08:41] LABS: BILIRUBIN,TOTAL 0.4 mg/dL (0.2-1); TOT PROT 6.1 g/dl (6.4-8.2)
[2021-07-11] MEDS: FLUoxetine HCL 20 MG CAPSULE PO SCH (09:47)
[2021-07-11] MEDS: FOLIC ACID 1 MG TABLET (FP) PO SCH (09:47)
[2021-07-11] MEDS: THIAMINE HCL 100 MG TABLET (FP) PO SCH (09:47)
[2021-07-11] MEDS: MULTIVITAMINS (DAILY MVI) TABLET (FP) PO SCH (09:48)
[2021-07-11] MEDS: ACETAMINOPHEN 325 MG TABLET (FP) PO PRN (16:43)
[2021-07-11] MEDS: QUEtiapine FUMARATE 100 MG TABLET (FP) PO SCH (22:33)
[2021-07-12] MEDS ORDERED: LORazepam 0.5 MG TABLET PO PRN
[2021-07-12] MEDS: INSULIN SLIDING SCALE (NOVOLOG) 1 VIAL SQ SCH ×4 (06:28→21:52)
[2021-07-12] MEDS: LORazepam 0.5 MG TABLET PO SCH ×4 (06:29→22:56)
[2021-07-12] MEDS: GABAPENTIN 400 MG CAPSULE PO SCH ×3 (06:30→21:50)
[2021-07-12 08:37] LABS: BASO % 0.4 % (0-2.0); EOS % 2.5 % (0-4.5); HEMATOCRIT 42.2 % (35.4-49); HEMOGLOBIN 14.4 GM/dL (11.7-16.9); LYMPH % 33.9 % (8-40); MCH 29.3 pg (25.7-33.7); MCHC 34.1 g/dl (32.0-35.9); MEAN CELL VOLUME 85.8 fl (80-96); MEAN PLT VOLUME 8.5 fl (7.5-11.1); NEUT % 56.2 % (42.8-82.8); PLATELET COUNT 154 10^3/uL (134-434); RBC 4.91 M/mm3 (4.00-5.60); RDW 15.2 % (11.9-15.9); WHITE BLOOD COUNT 6.1 K/mm3 (4.0-10.0)
[2021-07-12] MEDS: THIAMINE HCL 100 MG TABLET (FP) PO SCH (09:30)
[2021-07-12] MEDS: MULTIVITAMINS (DAILY MVI) TABLET (FP) PO SCH (09:30)
[2021-07-12] MEDS: FOLIC ACID 1 MG TABLET (FP) PO SCH (09:30)
[2021-07-12] MEDS: FLUoxetine HCL 20 MG CAPSULE PO SCH (09:30)
[2021-07-12] MEDS: ENOXAPARIN NA (PORCINE) 40 MG/0.4 ML DISP.SYRIN SQ SCH ×2 (09:31→09:34)
[2021-07-12 09:41] LABS: ALBUMIN 3.4 g/dl (3.4-5.0); CALCIUM 9.3 mg/dL (8.5-10.1)
[2021-07-12 09:42] LABS: BLOOD UREA NITROGEN 13.6 mg/dL (7-18)
[2021-07-12 09:46] LABS: CREATININE 0.8 mg/dL (0.55-1.3)
[2021-07-12 09:47] LABS: BILIRUBIN,TOTAL 0.5 mg/dL (0.2-1); TOT PROT 6.5 g/dl (6.4-8.2)
[2021-07-12] MEDS: ACETAMINOPHEN 325 MG TABLET (FP) PO PRN (13:07)
[2021-07-12] MEDS: QUEtiapine FUMARATE 100 MG TABLET (FP) PO SCH (21:50)
[2021-07-12] MEDS ORDERED: INSULIN (LEVEMIR) 100 UNITS/ML UNITS SQ SCH (22:00)
[2021-07-13] MEDS ORDERED: LORazepam 0.5 MG TABLET PO ONE (05:00)
[2021-07-13] MEDS: GABAPENTIN 400 MG CAPSULE PO SCH (06:29)
[2021-07-13] MEDS: INSULIN SLIDING SCALE (NOVOLOG) 1 VIAL SQ SCH (06:31)
[2021-07-13] MEDS: FOLIC ACID 1 MG TABLET (FP) PO SCH (09:28)
[2021-07-13] MEDS: THIAMINE HCL 100 MG TABLET (FP) PO SCH (09:28)
[2021-07-13] MEDS: MULTIVITAMINS (DAILY MVI) TABLET (FP) PO SCH (09:29)
[2021-07-13] MEDS: FLUoxetine HCL 20 MG CAPSULE PO SCH (09:31)
[2021-07-13] MEDS: ENOXAPARIN NA (PORCINE) 40 MG/0.4 ML DISP.SYRIN SQ SCH (09:31)
[2021-07-13 09:50] VITALS: BP 113/84; PULSE 90; TEMP 97.2
== END 2021-07-13 10:32 | disposition other institution (70) | DRG 775 ==
LOC: JER 10:01 → JERBED 14:18 → J5S 15:31
PROVIDERS: ADMIT Internal Medicine; ATTEND Nurse Practitioner Family
PROC: HZ2ZZZZ Detoxification Services for Substance Abuse Treatment (ICD-10-PCS; principal; 2021-07-11)
DX: F10.230 Alcohol dependence with withdrawal, uncomplicated (principal); R00.0 Tachycardia, unspecified; F41.8 Other specified anxiety disorders; E11.65 Type 2 diabetes mellitus with hyperglycemia; K21.9 Gastro-esophageal reflux disease without esophagitis
CPT/HCPCS: 36415; 80053; 81003; 82010; 82803; 82962; 83036; 83690; 83735; 85025; 85610; 85730; 93005; 93010; 97116-GP; 97161-GP; 99285-25

== ENCOUNTER 2021-09-11 10:23 | Inpatient (IN) | payer OTHER ==
[2021-09-11 11:40] VITALS: BMI 30.4
[2021-09-11] MEDS ORDERED: MAG HYDROX/AL HYDROX/SIMETH 30 ML UNIT-DOSE CUP PO PRN (12:49)
[2021-09-11] MEDS ORDERED: BENZOCAINE/MENTHOL (CHLORASEPTIC ) LOZENGE MM PRN (12:49)
[2021-09-11] MEDS ORDERED: DICYCLOMINE HCL 10 MG CAPSULE PO PRN (12:49)
[2021-09-11] MEDS ORDERED: MAGNESIUM HYDROX 2400MG/30ML ORAL SUSPENSION 30 ML CUP PO PRN (12:49)
[2021-09-11] MEDS ORDERED: BISMUTH SUBSALICYLATE 262 MG/15 ML BTL PO PRN (12:49)
[2021-09-11] MEDS ORDERED: MAGNESIUM CITRATE 300 ML BOTTLE PO PRN (12:49)
[2021-09-11] MEDS ORDERED: chlordiazePOXIDE HCL 25 MG CAPSULE PO ONE (12:49)
[2021-09-11] MEDS ORDERED: ACETAMINOPHEN 325 MG TABLET (FP) PO PRN (12:49)
[2021-09-11] MEDS ORDERED: LOPERAMIDE HCL 2 MG CAPSULE PO PRN (12:49)
[2021-09-11] MEDS: IBUPROFEN 600 MG TABLET (FP) PO PRN (13:18)
[2021-09-11] MEDS: ONDANSETRON *ODT* 4 MG TABLET SL PRN (13:18)
[2021-09-11] MEDS: hydrOXYzine PAMOATE 25 MG CAPSULE (FP) PO SCH ×3 (13:18→22:04)
[2021-09-11] MEDS: GABAPENTIN 400 MG CAPSULE PO SCH ×2 (15:21→22:04)
[2021-09-11] MEDS: chlordiazePOXIDE HCL 25 MG CAPSULE PO SCH ×2 (16:55→22:05)
[2021-09-11] MEDS: INSULIN SLIDING SCALE (NOVOLOG) 1 VIAL SQ SCH (16:58)
[2021-09-11] MEDS: THIAMINE HCL 100 MG TABLET (FP) PO SCH (22:04)
[2021-09-11] MEDS: QUEtiapine FUMARATE 50 MG TABLET PO SCH (22:04)
[2021-09-11] MEDS: chlordiazePOXIDE HCL 25 MG CAPSULE PO PRN (22:04)
[2021-09-11] MEDS: MELATONIN 5 MG TABLETS PO SCH (22:04)
[2021-09-12] MEDS: hydrOXYzine PAMOATE 25 MG CAPSULE (FP) PO SCH ×5 (05:46→22:19)
[2021-09-12] MEDS: GABAPENTIN 400 MG CAPSULE PO SCH ×3 (05:46→22:19)
[2021-09-12] MEDS: chlordiazePOXIDE HCL 25 MG CAPSULE PO SCH ×4 (05:46→22:18)
[2021-09-12] MEDS: ACETAMINOPHEN 325 MG TABLET (FP) PO PRN ×3 (05:49→22:22)
[2021-09-12] MEDS: INSULIN SLIDING SCALE (NOVOLOG) 1 VIAL SQ SCH ×3 (07:29→19:05)
[2021-09-12] MEDS: DEXTROAMPHETAMINE/AMPHETAMINE 10 MG CAP.ER.24H PO SCH (10:15)
[2021-09-12] MEDS: FLUoxetine HCL 20 MG CAPSULE PO SCH (10:15)
[2021-09-12] MEDS: PRENATAL VITAMINS W/ FOLIC ACID TABLET (FP) PO SCH (10:15)
[2021-09-12] MEDS: METHOCARBAMOL 500 MG TABLET PO PRN (10:15)
[2021-09-12] MEDS: ONDANSETRON *ODT* 4 MG TABLET SL PRN (10:18)
[2021-09-12] MEDS: IBUPROFEN 600 MG TABLET (FP) PO PRN (10:18)
[2021-09-12 11:36] LABS: HEMATOCRIT 40.8 % (35.4-49); MCH 29.4 pg (25.7-33.7); MCHC 34.3 g/dl (32.0-35.9); MEAN CELL VOLUME 85.7 fl (80-96); MEAN PLT VOLUME 8.8 fl (7.5-11.1); PLATELET COUNT 159 10^3/uL (134-434); RBC 4.76 M/mm3 (4.00-5.60); RDW 15.7 % (11.9-15.9); WHITE BLOOD COUNT 5.8 K/mm3 (4.0-10.0)
[2021-09-12 13:01] LABS: ALBUMIN 3.8 g/dl (3.4-5.0)
[2021-09-12 13:02] LABS: BLOOD UREA NITROGEN 7.6 mg/dL (7-18)
[2021-09-12 13:04] LABS: CREATININE 0.9 mg/dL (0.55-1.3)
[2021-09-12 13:06] LABS: BILIRUBIN,TOTAL 1.2 mg/dL (0.2-1); TOT PROT 6.8 g/dl (6.4-8.2)
[2021-09-12] MEDS: chlordiazePOXIDE HCL 25 MG CAPSULE PO PRN ×2 (13:13→19:59)
[2021-09-12] MEDS: THIAMINE HCL 100 MG TABLET (FP) PO SCH (22:18)
[2021-09-12] MEDS: QUEtiapine FUMARATE 50 MG TABLET PO SCH (22:19)
[2021-09-12] MEDS: MELATONIN 5 MG TABLETS PO SCH (22:19)
[2021-09-13] MEDS: IBUPROFEN 600 MG TABLET (FP) PO PRN (00:49)
[2021-09-13] MEDS: GABAPENTIN 400 MG CAPSULE PO SCH ×3 (05:37→22:09)
[2021-09-13] MEDS: hydrOXYzine PAMOATE 25 MG CAPSULE (FP) PO SCH ×5 (05:37→22:09)
[2021-09-13] MEDS: chlordiazePOXIDE HCL 25 MG CAPSULE PO SCH ×4 (05:38→22:09)
[2021-09-13] MEDS: METHOCARBAMOL 500 MG TABLET PO PRN ×2 (05:38→17:32)
[2021-09-13] MEDS: ACETAMINOPHEN 325 MG TABLET (FP) PO PRN ×2 (05:38→22:10)
[2021-09-13] MEDS: glipiZIDE-XL 5 MG TAB.ER.24 PO SCH (07:10)
[2021-09-13] MEDS: INSULIN SLIDING SCALE (NOVOLOG) 1 VIAL SQ SCH ×3 (07:10→17:35)
[2021-09-13] MEDS: FLUoxetine HCL 20 MG CAPSULE PO SCH (10:04)
[2021-09-13] MEDS: DEXTROAMPHETAMINE/AMPHETAMINE 10 MG CAP.ER.24H PO SCH (10:04)
[2021-09-13] MEDS: PRENATAL VITAMINS W/ FOLIC ACID TABLET (FP) PO SCH (10:05)
[2021-09-13] MEDS: chlordiazePOXIDE HCL 25 MG CAPSULE PO PRN (13:50)
[2021-09-13] MEDS ORDERED: INSULIN (NOVOLOG) ASPART 100 UNITS/ML 10ML VIAL ONE (17:27)
[2021-09-13] MEDS: IBUPROFEN 400 MG TABLET (FP) PO PRN (17:32)
[2021-09-13] MEDS: THIAMINE HCL 100 MG TABLET (FP) PO SCH (22:09)
[2021-09-13] MEDS: MELATONIN 5 MG TABLETS PO SCH (22:09)
[2021-09-13] MEDS: QUEtiapine FUMARATE 50 MG TABLET PO SCH (22:09)
[2021-09-14] MEDS ORDERED: chlordiazePOXIDE HCL 10 MG CAPSULE PO PRN
[2021-09-14] MEDS: GABAPENTIN 400 MG CAPSULE PO SCH ×3 (06:04→22:28)
[2021-09-14] MEDS: chlordiazePOXIDE HCL 10 MG CAPSULE PO SCH ×4 (06:04→22:29)
[2021-09-14] MEDS: glipiZIDE-XL 5 MG TAB.ER.24 PO SCH (06:04)
[2021-09-14] MEDS: hydrOXYzine PAMOATE 25 MG CAPSULE (FP) PO SCH ×5 (06:04→22:28)
[2021-09-14] MEDS: IBUPROFEN 400 MG TABLET (FP) PO PRN (06:08)
[2021-09-14] MEDS: INSULIN SLIDING SCALE (NOVOLOG) 1 VIAL SQ SCH ×3 (07:46→16:47)
[2021-09-14] MEDS: DEXTROAMPHETAMINE/AMPHETAMINE 10 MG CAP.ER.24H PO SCH (10:21)
[2021-09-14] MEDS: METHOCARBAMOL 500 MG TABLET PO PRN ×2 (10:21→18:42)
[2021-09-14] MEDS: FLUoxetine HCL 20 MG CAPSULE PO SCH (10:22)
[2021-09-14] MEDS: PRENATAL VITAMINS W/ FOLIC ACID TABLET (FP) PO SCH (10:22)
[2021-09-14] MEDS ORDERED: INSULIN (NOVOLOG) ASPART 100 UNITS/ML 10ML VIAL ONE (16:46)
[2021-09-14] MEDS: THIAMINE HCL 100 MG TABLET (FP) PO SCH (22:28)
[2021-09-14] MEDS: MELATONIN 5 MG TABLETS PO SCH (22:28)
[2021-09-14] MEDS: QUEtiapine FUMARATE 50 MG TABLET PO SCH (22:30)
[2021-09-15] MEDS: METHOCARBAMOL 500 MG TABLET PO PRN ×2 (02:43→12:04)
[2021-09-15] MEDS: IBUPROFEN 600 MG TABLET (FP) PO PRN ×2 (02:43→12:04)
[2021-09-15] MEDS: chlordiazePOXIDE HCL 10 MG CAPSULE PO SCH ×2 (06:00→17:39)
[2021-09-15] MEDS: hydrOXYzine PAMOATE 25 MG CAPSULE (FP) PO SCH ×5 (06:00→22:08)
[2021-09-15] MEDS: glipiZIDE-XL 5 MG TAB.ER.24 PO SCH (06:00)
[2021-09-15] MEDS: GABAPENTIN 400 MG CAPSULE PO SCH ×3 (06:00→22:08)
[2021-09-15] MEDS: INSULIN SLIDING SCALE (NOVOLOG) 1 VIAL SQ SCH ×3 (07:33→17:52)
[2021-09-15] MEDS ORDERED: INSULIN (NOVOLOG) ASPART 100 UNITS/ML 10ML VIAL ONE ×2 (07:56→11:59)
[2021-09-15] MEDS: DEXTROAMPHETAMINE/AMPHETAMINE 10 MG CAP.ER.24H PO SCH (10:30)
[2021-09-15] MEDS: PRENATAL VITAMINS W/ FOLIC ACID TABLET (FP) PO SCH (10:30)
[2021-09-15] MEDS: FLUoxetine HCL 20 MG CAPSULE PO SCH (10:30)
[2021-09-15] MEDS: QUEtiapine FUMARATE 50 MG TABLET PO SCH (22:08)
[2021-09-15] MEDS: MELATONIN 5 MG TABLETS PO SCH (22:08)
[2021-09-15] MEDS: THIAMINE HCL 100 MG TABLET (FP) PO SCH (22:08)
[2021-09-16] MEDS ORDERED: chlordiazePOXIDE HCL 10 MG CAPSULE PO ONE (05:00)
[2021-09-16] MEDS: hydrOXYzine PAMOATE 25 MG CAPSULE (FP) PO SCH ×3 (05:43→13:32)
[2021-09-16] MEDS: GABAPENTIN 400 MG CAPSULE PO SCH ×2 (05:44→13:32)
[2021-09-16] MEDS: glipiZIDE-XL 5 MG TAB.ER.24 PO SCH (06:19)
[2021-09-16] MEDS: INSULIN SLIDING SCALE (NOVOLOG) 1 VIAL SQ SCH ×2 (07:11→11:45)
[2021-09-16] MEDS: DEXTROAMPHETAMINE/AMPHETAMINE 10 MG CAP.ER.24H PO SCH (10:39)
[2021-09-16] MEDS: FLUoxetine HCL 20 MG CAPSULE PO SCH (10:39)
[2021-09-16] MEDS: PRENATAL VITAMINS W/ FOLIC ACID TABLET (FP) PO SCH (10:39)
[2021-09-16] MEDS: IBUPROFEN 600 MG TABLET (FP) PO PRN (12:47)
[2021-09-16] MEDS: METHOCARBAMOL 500 MG TABLET PO PRN (12:47)
[2021-09-16 12:50] VITALS: BP 141/68; PULSE 97; TEMP 98.1
== END 2021-09-16 14:14 | disposition other institution (70) | DRG 775 ==
LOC: YASAS 10:23 → Y6N 13:01
PROVIDERS: ADMIT Allergy & Immunology; ATTEND Surgery
PROC: HZ2ZZZZ Detoxification Services for Substance Abuse Treatment (ICD-10-PCS; principal; 2021-09-11)
DX: F10.230 Alcohol dependence with withdrawal, uncomplicated (principal); F10.280 Alcohol dependence with alcohol-induced anxiety disorder; F10.282 Alcohol dependence with alcohol-induced sleep disorder; F10.24 Alcohol dependence with alcohol-induced mood disorder; F90.9 Attention-deficit hyperactivity disorder, unspecified type; F41.1 Generalized anxiety disorder; G62.9 Polyneuropathy, unspecified; E11.42 Type 2 diabetes mellitus with diabetic polyneuropathy; K21.9 Gastro-esophageal reflux disease without esophagitis; Z79.84 Long term (current) use of oral hypoglycemic drugs; Z86.69 Personal history of other diseases of the nervous system and sense organs; Z56.0 Unemployment, unspecified; Z59.01 Sheltered homelessness
CPT/HCPCS: 36415; 72100-TC-FY; 80053; 82962; 83036; 85027; 86780; C9803-CS; Q0162; U0003; U0005

== ENCOUNTER 2021-09-16 08:46 | Inpatient (IN) | payer OTHER ==
[2021-09-16] MEDS ORDERED: BENZOCAINE/MENTHOL (CHLORASEPTIC ) LOZENGE MM PRN (18:00)
[2021-09-16] MEDS ORDERED: LOPERAMIDE HCL 2 MG CAPSULE PO PRN (18:00)
[2021-09-16] MEDS ORDERED: guaiFENesin 200 MG/10 ML 10 ML UNIT-DOSE CUPS PO PRN (18:00)
[2021-09-16] MEDS ORDERED: NICOTINE 10 MG CARTRIDGE (INHALER) IH PRN (18:00)
[2021-09-16] MEDS ORDERED: MAGNESIUM HYDROX 2400MG/30ML ORAL SUSPENSION 30 ML CUP PO PRN (18:00)
[2021-09-16] MEDS ORDERED: ACETAMINOPHEN 325 MG TABLET (FP) PO PRN (18:00)
[2021-09-16] MEDS ORDERED: MAG HYDROX/AL HYDROX/SIMETH 30 ML UNIT-DOSE CUP PO PRN (18:00)
[2021-09-16] MEDS ORDERED: P-EPHED 60MG/TRIPROLIDI 2.5MG TABLET PO PRN (18:00)
[2021-09-16] MEDS ORDERED: MAGNESIUM CITRATE 300 ML BOTTLE PO PRN (18:00)
[2021-09-16] MEDS: hydrOXYzine PAMOATE 25 MG CAPSULE (FP) PO SCH ×2 (21:17→21:19)
[2021-09-16] MEDS: FAMOTIDINE 20 MG TABLET PO SCH (21:17)
[2021-09-16] MEDS: MELATONIN 5 MG TABLETS PO SCH (21:17)
[2021-09-16] MEDS: THIAMINE HCL 100 MG TABLET (FP) PO SCH (21:17)
[2021-09-16] MEDS: IBUPROFEN 400 MG TABLET (FP) PO PRN (21:19)
[2021-09-17] MEDS: glipiZIDE-XL 5 MG TAB.ER.24 PO SCH (07:02)
[2021-09-17] MEDS: hydrOXYzine PAMOATE 25 MG CAPSULE (FP) PO SCH ×4 (07:02→21:14)
[2021-09-17] MEDS: PRENATAL VITAMINS W/ FOLIC ACID TABLET (FP) PO SCH (10:54)
[2021-09-17] MEDS: FAMOTIDINE 20 MG TABLET PO SCH ×2 (10:54→21:14)
[2021-09-17] MEDS: DEXTROAMPHETAMINE/AMPHETAMINE 10 MG CAP.ER.24H PO SCH (10:56)
[2021-09-17] MEDS: FLUoxetine HCL 20 MG CAPSULE PO SCH (10:57)
[2021-09-17] MEDS: NICOTINE 7 MG/24 HOURS TOPICAL PATCH TD SCH (10:57)
[2021-09-17] MEDS: IBUPROFEN 400 MG TABLET (FP) PO PRN (11:03)
[2021-09-17] MEDS: GABAPENTIN 400 MG CAPSULE PO SCH ×2 (13:55→21:14)
[2021-09-17] MEDS: QUEtiapine FUMARATE 50 MG TABLET PO SCH (21:14)
[2021-09-17] MEDS: MELATONIN 5 MG TABLETS PO SCH (21:14)
[2021-09-17] MEDS: THIAMINE HCL 100 MG TABLET (FP) PO SCH (21:14)
[2021-09-17] MEDS: INSULIN (LEVEMIR) 100 UNITS/ML UNITS SQ SCH (21:18)
[2021-09-18] MEDS: GABAPENTIN 400 MG CAPSULE PO SCH ×3 (06:32→21:13)
[2021-09-18] MEDS: glipiZIDE-XL 5 MG TAB.ER.24 PO SCH (06:32)
[2021-09-18] MEDS ORDERED: INSULIN (NOVOLOG) ASPART 100 UNITS/ML 10ML VIAL ONE ×3 (06:59→19:24)
[2021-09-18] MEDS: hydrOXYzine PAMOATE 25 MG CAPSULE (FP) PO SCH ×3 (07:05→14:35)
[2021-09-18] MEDS: INSULIN SLIDING SCALE (NOVOLOG) 1 VIAL SQ SCH ×2 (07:48→16:23)
[2021-09-18] MEDS: PRENATAL VITAMINS W/ FOLIC ACID TABLET (FP) PO SCH (10:36)
[2021-09-18] MEDS: FAMOTIDINE 20 MG TABLET PO SCH ×2 (10:36→21:18)
[2021-09-18] MEDS: DEXTROAMPHETAMINE/AMPHETAMINE 10 MG CAP.ER.24H PO SCH (10:36)
[2021-09-18] MEDS: NICOTINE 7 MG/24 HOURS TOPICAL PATCH TD SCH (10:36)
[2021-09-18] MEDS: FLUoxetine HCL 20 MG CAPSULE PO SCH (10:37)
[2021-09-18] MEDS: IBUPROFEN 400 MG TABLET (FP) PO PRN (10:38)
[2021-09-18] MEDS ORDERED: hydrOXYzine PAMOATE 25 MG CAPSULE (FP) PO PRN (16:59)
[2021-09-18] MEDS: QUEtiapine FUMARATE 50 MG TABLET PO SCH (21:13)
[2021-09-18] MEDS: INSULIN (LEVEMIR) 100 UNITS/ML UNITS SQ SCH (21:13)
[2021-09-18] MEDS: THIAMINE HCL 100 MG TABLET (FP) PO SCH (21:13)
[2021-09-18] MEDS: MELATONIN 5 MG TABLETS PO SCH (21:13)
[2021-09-19] MEDS: IBUPROFEN 400 MG TABLET (FP) PO PRN ×2 (06:55→13:51)
[2021-09-19] MEDS: FAMOTIDINE 20 MG TABLET PO SCH (06:56)
[2021-09-19] MEDS: GABAPENTIN 400 MG CAPSULE PO SCH ×2 (06:56→13:52)
[2021-09-19] MEDS: glipiZIDE-XL 5 MG TAB.ER.24 PO SCH (06:56)
[2021-09-19] MEDS ORDERED: INSULIN (NOVOLOG) ASPART 100 UNITS/ML 10ML VIAL ONE (07:06)
[2021-09-19 07:35] VITALS: BP 109/74; PULSE 70; TEMP 97.7
[2021-09-19] MEDS: INSULIN SLIDING SCALE (NOVOLOG) 1 VIAL SQ SCH (08:09)
[2021-09-19] MEDS: DEXTROAMPHETAMINE/AMPHETAMINE 10 MG CAP.ER.24H PO SCH (10:29)
[2021-09-19] MEDS: FLUoxetine HCL 20 MG CAPSULE PO SCH (10:29)
[2021-09-19] MEDS: PRENATAL VITAMINS W/ FOLIC ACID TABLET (FP) PO SCH (10:29)
[2021-09-19] MEDS: NICOTINE 7 MG/24 HOURS TOPICAL PATCH TD SCH (10:30)
== END 2021-09-19 15:10 | disposition home or self-care (01) | DRG 772 ==
LOC: YASAS 08:46 → Y5N 08:51
PROVIDERS: ADMIT Allergy & Immunology; ATTEND Psychiatry & Neurology Pain Medicine
PROC: HZ42ZZZ Group Counseling for Substance Abuse Treatment, Cognitive-Behavioral (ICD-10-PCS; principal; 2021-09-16)
DX: F10.20 Alcohol dependence, uncomplicated (principal); F41.1 Generalized anxiety disorder; F32.A Depression, unspecified; F90.9 Attention-deficit hyperactivity disorder, unspecified type; K21.9 Gastro-esophageal reflux disease without esophagitis; E11.42 Type 2 diabetes mellitus with diabetic polyneuropathy; Z79.4 Long term (current) use of insulin; Z86.69 Personal history of other diseases of the nervous system and sense organs
CPT/HCPCS: 82962

== ENCOUNTER 2024-07-14 02:11 | Inpatient (IN) | payer OTHER ==
[2024-07-14 02:47] VITALS: BMI 30.7
[2024-07-14] MEDS ORDERED: NALOXONE (NARCAN) HCL 4 MG/0.1 ML SPRAY NS PRN (04:00)
[2024-07-14] MEDS ORDERED: MAG HYDROX/AL HYDROX/SIMETH 30 ML UNIT-DOSE CUP PO PRN (04:00)
[2024-07-14] MEDS ORDERED: BENZOCAINE/MENTHOL (CHLORASEPTIC ) LOZENGE MM PRN (04:00)
[2024-07-14] MEDS ORDERED: ONDANSETRON *ODT* 4 MG TABLET SL PRN (04:00)
[2024-07-14] MEDS ORDERED: BENZONATATE 200 MG CAPSULE PO PRN (04:00)
[2024-07-14] MEDS ORDERED: MAGNESIUM HYDROX 2400MG/30ML ORAL SUSPENSION 30 ML CUP PO PRN (04:00)
[2024-07-14] MEDS ORDERED: POLYETHYLENE GLYCOL (HEALTHYLAX) 3350 17 GM PACKET PO PRN (04:00)
[2024-07-14] MEDS ORDERED: BISMUTH SUBSALICYLATE 524 MG/30 ML PO PRN (04:00)
[2024-07-14] MEDS ORDERED: DICYCLOMINE HCL 10 MG CAPSULE PO PRN (04:00)
[2024-07-14] MEDS ORDERED: guaiFENesin 600 MG TABLET.ER (FP) PO PRN (04:00)
[2024-07-14] MEDS ORDERED: LOPERAMIDE HCL 2 MG CAPSULE PO PRN (04:00)
[2024-07-14] MEDS: chlordiazePOXIDE HCL 25 MG CAPSULE PO SCH (05:50)
[2024-07-14] MEDS: INSULIN ASPART SLIDING SCALE (NOVOLOG) 1 VIAL SQ SCH (07:39)
[2024-07-14] MEDS: PRENATAL VITAMINS W/ FOLIC ACID TABLET (FP) PO SCH (10:09)
[2024-07-14] MEDS: EMPAGLIFLOZIN (JARDIANCE) 25 MG TABLET PO SCH (10:11)
[2024-07-14] MEDS: PANTOPRAZOLE 40 MG TABLET PO SCH (10:11)
[2024-07-14] MEDS: FLUoxetine HCL 20 MG CAPSULE PO SCH (10:11)
[2024-07-14] MEDS: IBUPROFEN 600 MG TABLET (FP) PO PRN (10:12)
[2024-07-14] MEDS: GABAPENTIN 400 MG CAPSULE PO SCH (14:11)
[2024-07-14] MEDS: chlordiazePOXIDE HCL 25 MG CAPSULE PO PRN (14:12)
[2024-07-14] MEDS: ACETAMINOPHEN 325 MG TABLET (FP) PO PRN (14:16)
[2024-07-14] MEDS ORDERED: INSULIN (NOVOLOG) ASPART 100 UNITS/ML 10ML VIAL ONE (16:49)
[2024-07-14] MEDS: NALTREXONE HCL 50 MG TABLET PO SCH (21:59)
[2024-07-14] MEDS: THIAMINE 100 MG TABLET PO SCH (22:00)
[2024-07-14] MEDS: QUEtiapine FUMARATE 50 MG TABLET PO SCH (22:00)
[2024-07-14] MEDS: MELATONIN 5 MG TABLETS PO SCH (22:00)
[2024-07-14] MEDS: IBUPROFEN 400 MG TABLET (FP) PO PRN (22:03)
[2024-07-15] MEDS: glipiZIDE-XL 5 MG TAB.ER.24 PO SCH (06:05)
[2024-07-15] MEDS: chlordiazePOXIDE HCL 25 MG CAPSULE PO SCH (06:05)
[2024-07-15] MEDS: hydrOXYzine PAMOATE 25 MG CAPSULE (FP) PO PRN (09:22)
[2024-07-15] MEDS: INSULIN (NOVOLOG) ASPART 100 UNITS/ML 10ML VIAL SQ SCH (11:03)
[2024-07-15] MEDS ORDERED: INSULIN (NOVOLOG) ASPART 100 UNITS/ML 10ML VIAL ONE ×2 (11:06→17:12)
[2024-07-15 12:27] LABS: HEMATOCRIT 36.2 % (40.1-51.0); MCHC 30.4 g/dl (32.3-36.5); MEAN PLT VOLUME 10.7 fl (9.4-12.4); PLATELET COUNT 211 x10^3/uL (163-337); RDW 17.2 % (12.2-16.1)
[2024-07-15 12:46] LABS: POTASSIUM 4.4 mmol/L (3.5-5.1)
[2024-07-15 12:54] LABS: ALBUMIN 3.3 g/dl (3.4-5.0); CALCIUM 9.1 mg/dL (8.5-10.1)
[2024-07-15 12:55] LABS: BLOOD UREA NITROGEN 14.4 mg/dL (7-18)
[2024-07-15 12:57] LABS: CREATININE 0.9 mg/dL (0.55-1.3)
[2024-07-15 12:59] LABS: BILIRUBIN,TOTAL 0.7 mg/dL (0.2-1); TOT PROT 6.2 g/dl (6.4-8.2)
[2024-07-15] MEDS: INSULIN GLARGINE (LANTUS) 100 UNITS/ML UNITS SQ SCH (22:59)
[2024-07-15] MEDS: INSULIN (LEVEMIR) 100 UNITS/ML UNITS SQ SCH (23:03)
[2024-07-16] MEDS ORDERED: chlordiazePOXIDE HCL 10 MG CAPSULE PO PRN
[2024-07-16] MEDS: chlordiazePOXIDE HCL 10 MG CAPSULE PO SCH (05:56)
[2024-07-16] MEDS: METHOCARBAMOL 500 MG TABLET PO PRN (09:17)
[2024-07-16] MEDS ORDERED: INSULIN (NOVOLOG) ASPART 100 UNITS/ML 10ML VIAL ONE (16:42)
[2024-07-16] MEDS ORDERED: BACITRACIN 0.9 GM PACKET TP PRN (17:58)
[2024-07-16] MEDS: BACITRACIN 0.9 GM PACKET TP PRN (19:14)
[2024-07-17] MEDS: chlordiazePOXIDE HCL 10 MG CAPSULE PO SCH (05:47)
[2024-07-17 09:08] VITALS: RESP 17
[2024-07-17] MEDS ORDERED: INSULIN (NOVOLOG) ASPART 100 UNITS/ML 10ML VIAL ONE (11:16)
[2024-07-17 13:34] VITALS: BP 107/69; PULSE 85; TEMP 98.6
[2024-07-18] MEDS ORDERED: chlordiazePOXIDE HCL 10 MG CAPSULE PO ONE (05:00)
== END 2024-07-17 15:32 | disposition other institution (70) | DRG 775 ==
LOC: YASAS 02:11 → Y6N 04:27
PROVIDERS: ADMIT Allergy & Immunology; ATTEND Allergy & Immunology
PROC: HZ2ZZZZ Detoxification Services for Substance Abuse Treatment (ICD-10-PCS; principal; 2024-07-14)
DX: F10.230 Alcohol dependence with withdrawal, uncomplicated (principal); F10.282 Alcohol dependence with alcohol-induced sleep disorder; F32.9 Major depressive disorder, single episode, unspecified; F41.9 Anxiety disorder, unspecified; E11.42 Type 2 diabetes mellitus with diabetic polyneuropathy; Z79.84 Long term (current) use of oral hypoglycemic drugs; K21.9 Gastro-esophageal reflux disease without esophagitis; Z56.0 Unemployment, unspecified; Z59.00 Homelessness unspecified
CPT/HCPCS: 36415; 80053; 80305; 80307; 82140; 82962; 85027; 86780; 87811; 93005; 93010

== ENCOUNTER 2024-08-19 21:40 | Inpatient (IN) | payer OTHER ==
[2024-08-19] MEDS ORDERED: MAG HYDROX/AL HYDROX/SIMETH 30 ML UNIT-DOSE CUP PO PRN (22:04)
[2024-08-19] MEDS ORDERED: BISMUTH SUBSALICYLATE 524 MG/30 ML PO PRN (22:04)
[2024-08-19] MEDS ORDERED: BENZONATATE 200 MG CAPSULE PO PRN (22:04)
[2024-08-19] MEDS ORDERED: guaiFENesin 600 MG TABLET.ER (FP) PO PRN (22:04)
[2024-08-19] MEDS ORDERED: BENZOCAINE/MENTHOL (CHLORASEPTIC ) LOZENGE MM PRN (22:04)
[2024-08-19] MEDS ORDERED: hydrOXYzine PAMOATE 25 MG CAPSULE (FP) PO PRN (22:04)
[2024-08-19] MEDS ORDERED: DICYCLOMINE HCL 10 MG CAPSULE PO PRN (22:04)
[2024-08-19] MEDS ORDERED: MAGNESIUM HYDROX 2400MG/30ML ORAL SUSPENSION 30 ML CUP PO PRN (22:04)
[2024-08-19] MEDS ORDERED: POLYETHYLENE GLYCOL (HEALTHYLAX) 3350 17 GM PACKET PO PRN (22:04)
[2024-08-19] MEDS ORDERED: NALOXONE (NARCAN) HCL 4 MG/0.1 ML SPRAY NS PRN (22:04)
[2024-08-19] MEDS ORDERED: ONDANSETRON *ODT* 4 MG TABLET SL PRN (22:04)
[2024-08-19] MEDS ORDERED: IBUPROFEN 400 MG TABLET (FP) PO PRN (22:04)
[2024-08-19 22:15] VITALS: BMI 29.5
[2024-08-19] MEDS ORDERED: levETIRAcetam 500 MG TABLET (FP) PO ONE (22:31)
[2024-08-19] MEDS ORDERED: chlordiazePOXIDE HCL 25 MG CAPSULE ONE (22:31)
[2024-08-19] MEDS ORDERED: propRANOLol HCL 10 MG TABLET ONE (22:32)
[2024-08-19] MEDS ORDERED: INSULIN (NOVOLOG) ASPART 100 UNITS/ML 10ML VIAL ONE (22:32)
[2024-08-19] MEDS: INSULIN ASPART SLIDING SCALE (NOVOLOG) 1 VIAL SQ SCH (22:39)
[2024-08-19] MEDS: levETIRAcetam 500 MG TABLET (FP) PO SCH (22:40)
[2024-08-19] MEDS: propRANOLol HCL 10 MG TABLET PO ONE (22:40)
[2024-08-19] MEDS: chlordiazePOXIDE HCL 25 MG CAPSULE PO SCH (22:40)
[2024-08-19] MEDS: BACITRACIN 0.9 GM PACKET TP SCH (23:00)
[2024-08-20] MEDS: chlordiazePOXIDE HCL 25 MG CAPSULE PO PRN (03:32)
[2024-08-20] MEDS: PRENATAL VITAMINS W/ FOLIC ACID TABLET (FP) PO SCH (10:15)
[2024-08-20] MEDS: ACETAMINOPHEN 325 MG TABLET (FP) PO PRN (10:18)
[2024-08-20] MEDS: LOPERAMIDE HCL 2 MG CAPSULE PO PRN (10:18)
[2024-08-20] MEDS: PANTOPRAZOLE 40 MG TABLET PO SCH (10:18)
[2024-08-20] MEDS: AMOX TR/POT CLAV 875MG/125MG TABLETS (FP) PO SCH (10:18)
[2024-08-20] MEDS ORDERED: INSULIN ASPART SLIDING SCALE (NOVOLOG) 1 VIAL SQ ONE (12:04)
[2024-08-20 12:15] LABS: HEMATOCRIT 36.9 % (40.1-51.0); HEMOGLOBIN 11.4 g/dL (13.7-17.5); MCHC 30.9 g/dl (32.3-36.5); MEAN CELL VOLUME 80.6 fl (79.0-92.2); MEAN PLT VOLUME 10.2 fl (9.4-12.4); PLATELET COUNT 198 x10^3/uL (163-337); RDW 15.8 % (12.2-16.1)
[2024-08-20 12:17] LABS: POTASSIUM 3.6 mmol/L (3.5-5.1)
[2024-08-20 12:24] LABS: ALBUMIN 3.2 g/dl (3.4-5.0); BLOOD UREA NITROGEN 5.8 mg/dL (7-18)
[2024-08-20 12:27] LABS: CREATININE 0.8 mg/dL (0.55-1.3)
[2024-08-20 12:28] LABS: BILIRUBIN,TOTAL 0.9 mg/dL (0.2-1); TOT PROT 6.7 g/dl (6.4-8.2)
[2024-08-20] MEDS: IBUPROFEN 600 MG TABLET (FP) PO PRN (17:02)
[2024-08-20] MEDS: THIAMINE 100 MG TABLET PO SCH (22:06)
[2024-08-20] MEDS: QUEtiapine FUMARATE 50 MG TABLET PO SCH (22:06)
[2024-08-20] MEDS: MELATONIN 5 MG TABLETS PO SCH (22:10)
[2024-08-20] MEDS: METHOCARBAMOL 500 MG TABLET PO PRN (22:10)
[2024-08-21] MEDS: chlordiazePOXIDE HCL 25 MG CAPSULE PO SCH (05:45)
[2024-08-21] MEDS: EMPAGLIFLOZIN (JARDIANCE) 25 MG TABLET PO SCH (07:40)
[2024-08-21] MEDS ORDERED: INSULIN ASPART SLIDING SCALE (NOVOLOG) 1 VIAL SQ ONE (07:44)
[2024-08-21] MEDS: glipiZIDE-XL 5 MG TAB.ER.24 PO SCH (07:56)
[2024-08-22] MEDS: chlordiazePOXIDE HCL 10 MG CAPSULE PO PRN (01:59)
[2024-08-22] MEDS: chlordiazePOXIDE HCL 10 MG CAPSULE PO SCH (05:29)
[2024-08-22] MEDS: GABAPENTIN 300 MG CAPSULE PO SCH (15:26)
[2024-08-22] MEDS: FLUoxetine HCL 10 MG TABLET PO SCH (15:26)
[2024-08-22] MEDS: QUEtiapine FUMARATE 100 MG TABLET (FP) PO SCH (22:19)
[2024-08-23] MEDS: chlordiazePOXIDE HCL 10 MG CAPSULE PO SCH (05:00)
[2024-08-23] MEDS ORDERED: INSULIN ASPART SLIDING SCALE (NOVOLOG) 1 VIAL SQ ONE (06:36)
[2024-08-24] MEDS: chlordiazePOXIDE HCL 10 MG CAPSULE PO ONE (06:24)
[2024-08-24 06:31] VITALS: RESP 16
[2024-08-24 12:43] VITALS: BP 118/75; PULSE 84; TEMP 97.1
== END 2024-08-24 12:47 | disposition other institution (70) | DRG 775 ==
LOC: YASAS 21:40 → Y3N 22:20
PROVIDERS: ADMIT Allergy & Immunology; ATTEND Allergy & Immunology
PROC: HZ2ZZZZ Detoxification Services for Substance Abuse Treatment (ICD-10-PCS; principal; 2024-08-19)
DX: F10.230 Alcohol dependence with withdrawal, uncomplicated (principal); F32.A Depression, unspecified; F41.9 Anxiety disorder, unspecified; F42.9 Obsessive-compulsive disorder, unspecified; G47.00 Insomnia, unspecified; G62.9 Polyneuropathy, unspecified; K21.9 Gastro-esophageal reflux disease without esophagitis; L03.115 Cellulitis of right lower limb; L03.116 Cellulitis of left lower limb; E11.9 Type 2 diabetes mellitus without complications; Z79.4 Long term (current) use of insulin; Z79.84 Long term (current) use of oral hypoglycemic drugs; Z59.01 Sheltered homelessness
CPT/HCPCS: 36415; 80053; 82962; 85027; 87811

== ENCOUNTER 2024-08-24 13:12 | Inpatient (IN) | payer OTHER ==
[2024-08-24] MEDS ORDERED: LOPERAMIDE HCL 2 MG CAPSULE PO PRN (14:17)
[2024-08-24] MEDS ORDERED: MAGNESIUM HYDROX 2400MG/30ML ORAL SUSPENSION 30 ML CUP PO PRN (14:17)
[2024-08-24] MEDS ORDERED: POLYETHYLENE GLYCOL (HEALTHYLAX) 3350 17 GM PACKET PO PRN (14:17)
[2024-08-24] MEDS ORDERED: guaiFENesin 600 MG TABLET.ER (FP) PO PRN (14:17)
[2024-08-24] MEDS ORDERED: NALOXONE (NARCAN) HCL 4 MG/0.1 ML SPRAY NS PRN (14:17)
[2024-08-24] MEDS ORDERED: BENZOCAINE/MENTHOL (CHLORASEPTIC ) LOZENGE MM PRN (14:17)
[2024-08-24] MEDS ORDERED: BENZONATATE 200 MG CAPSULE PO PRN (14:17)
[2024-08-24] MEDS ORDERED: MAG HYDROX/AL HYDROX/SIMETH 30 ML UNIT-DOSE CUP PO PRN (14:17)
[2024-08-24] MEDS ORDERED: NALOXONE HCL 0.4 MG/ML VIAL IVPUSH PRN (14:17)
[2024-08-24] MEDS: INSULIN ASPART SLIDING SCALE (NOVOLOG) 1 VIAL SQ SCH (16:31)
[2024-08-24] MEDS: MELATONIN 5 MG TABLETS PO SCH (21:40)
[2024-08-24] MEDS: THIAMINE 100 MG TABLET PO SCH (21:40)
[2024-08-24] MEDS: hydrOXYzine PAMOATE 25 MG CAPSULE (FP) PO PRN (22:22)
[2024-08-24] MEDS: METHOCARBAMOL 500 MG TABLET PO PRN (22:22)
[2024-08-25] MEDS: EMPAGLIFLOZIN (JARDIANCE) 25 MG TABLET PO SCH (06:12)
[2024-08-25] MEDS: glipiZIDE-XL 5 MG TAB.ER.24 PO SCH (06:12)
[2024-08-25] MEDS: PANTOPRAZOLE 40 MG TABLET PO SCH (10:03)
[2024-08-25] MEDS: PRENATAL VITAMINS W/ FOLIC ACID TABLET (FP) PO SCH (10:03)
[2024-08-25] MEDS: GABAPENTIN 400 MG CAPSULE PO SCH (14:23)
[2024-08-26] MEDS ORDERED: INSULIN ASPART SLIDING SCALE (NOVOLOG) 1 VIAL SQ ONE (06:41)
[2024-08-26] MEDS: IBUPROFEN 600 MG TABLET (FP) PO PRN (06:42)
[2024-08-26] MEDS: ACETAMINOPHEN 325 MG TABLET (FP) PO PRN (13:54)
[2024-08-27] MEDS ORDERED: INSULIN ASPART SLIDING SCALE (NOVOLOG) 1 VIAL SQ ONE (06:12)
[2024-08-28] MEDS ORDERED: INSULIN ASPART SLIDING SCALE (NOVOLOG) 1 VIAL SQ ONE (07:20)
[2024-08-29] MEDS ORDERED: INSULIN ASPART SLIDING SCALE (NOVOLOG) 1 VIAL SQ ONE (08:01)
[2024-08-29] MEDS ORDERED: glipiZIDE 10 MG TABLET (FP) PO ONE (10:00)
[2024-08-29] MEDS: glipiZIDE-XL 5 MG TAB.ER.24 PO ONE (11:00)
[2024-08-30] MEDS: glipiZIDE-XL 5 MG TAB.ER.24 PO SCH (06:02)
[2024-08-30] MEDS ORDERED: INSULIN ASPART SLIDING SCALE (NOVOLOG) 1 VIAL SQ ONE (06:03)
[2024-08-31] MEDS ORDERED: INSULIN ASPART SLIDING SCALE (NOVOLOG) 1 VIAL SQ ONE (06:23)
[2024-09-01] MEDS: IBUPROFEN 400 MG TABLET (FP) PO PRN (15:00)
[2024-09-01] MEDS ORDERED: glipiZIDE 5 MG TABLET (FP) ONE (16:33)
[2024-09-01] MEDS: glipiZIDE 10 MG TABLET (FP) PO SCH (16:34)
[2024-09-01] MEDS: MELATONIN 5 MG TABLETS PO PRN (21:03)
[2024-09-02] MEDS ORDERED: INSULIN ASPART SLIDING SCALE (NOVOLOG) 1 VIAL SQ ONE (06:06)
[2024-09-02] MEDS: NALTREXONE HCL 50 MG TABLET PO SCH (10:03)
[2024-09-02] MEDS ORDERED: glipiZIDE 5 MG TABLET (FP) ONE (16:18)
[2024-09-04] MEDS ORDERED: INSULIN ASPART SLIDING SCALE (NOVOLOG) 1 VIAL SQ ONE (06:07)
[2024-09-04] MEDS ORDERED: glipiZIDE 5 MG TABLET (FP) ONE (16:30)
[2024-09-05] MEDS ORDERED: glipiZIDE 5 MG TABLET (FP) ONE (04:30)
[2024-09-05] MEDS: NALTREXONE HCL 50 MG TABLET PO SCH (10:40)
[2024-09-06] MEDS ORDERED: glipiZIDE 5 MG TABLET (FP) ONE ×2 (04:33→16:42)
[2024-09-07 05:58] VITALS: BP 123/75; PULSE 62; RESP 16; TEMP 97.7
== END 2024-09-07 09:25 | disposition home or self-care (01) | DRG 772 ==
LOC: YASAS 13:12 → Y3W 13:16
PROVIDERS: ADMIT Psychiatry & Neurology Pain Medicine; ATTEND Psychiatry & Neurology Pain Medicine
PROC: HZ42ZZZ Group Counseling for Substance Abuse Treatment, Cognitive-Behavioral (ICD-10-PCS; principal; 2024-08-24)
DX: F10.20 Alcohol dependence, uncomplicated (principal); K21.9 Gastro-esophageal reflux disease without esophagitis; F41.8 Other specified anxiety disorders; F90.1 Attention-deficit hyperactivity disorder, predominantly hyperactive type; E11.40 Type 2 diabetes mellitus with diabetic neuropathy, unspecified; F42.9 Obsessive-compulsive disorder, unspecified
CPT/HCPCS: 82962